=== PATIENT | male | born 1955 | race Two or more races ===

== ENCOUNTER 2016-09-15 21:03 | Inpatient (IN) | payer MEDICARE, OTHER ==
[~2016-09-15] VITALS: Ht 172.7 cm; Wt 68.0 kg
[2016-09-15] MEDS ORDERED: Lactulose 20gm/30ml UDC ORAL ONE (21:15)
[2016-09-15] MEDS ORDERED: Rifaximin 550mg tab ORAL ONE (21:15)
[2016-09-15] MEDS ORDERED: PROPRANOLOL HCL20 MG ORAL (21:17)
[2016-09-15] MEDS ORDERED: ZOFRAN8 MG ORAL (21:17)
[2016-09-15] MEDS ORDERED: PRO-STAT LIQUID30 ML ORAL (21:17)
[2016-09-15] MEDS ORDERED: LOPERAMIDE2 MG PO (21:17)
[2016-09-15] MEDS ORDERED: SPIRONOLACTONE1 EACH ORAL (21:17)
[2016-09-15] MEDS ORDERED: MULTIVITAMINS1 EAC2 ORAL (21:17)
[2016-09-15] MEDS ORDERED: FOLIC ACID1 MG ORAL (21:17)
[2016-09-15] MEDS ORDERED: QUETIAPINE FUMA25 MG ORAL (21:17)
[2016-09-15] MEDS ORDERED: ACETAMINOPHEN325 M1 ORAL (21:17)
[2016-09-15] MEDS ORDERED: XIFAXAN550 MG ORAL (21:17)
[2016-09-15] MEDS ORDERED: SENSIPAR30 MG ORAL (21:17)
[2016-09-15] MEDS ORDERED: LD2JL30 TOPIC (21:17)
[2016-09-15] MEDS ORDERED: FUROSEMIDE20 M1 ORAL (21:17)
[2016-09-15] MEDS ORDERED: PROTONIX40 MG ORAL (21:17)
[2016-09-15] MEDS ORDERED: TAMSULOSIN HCL0.4 MG ORAL (21:17)
[2016-09-15] MEDS ORDERED: PHOS-NAK PACKE1 EAC1 PO (21:17)
[2016-09-15] MEDS ORDERED: LACTULOSE20 GM/301 ORAL (21:17)
[2016-09-15] MEDS ORDERED: MIDODRINE HCL5 MG ORAL (21:17)
[2016-09-15] MEDS ORDERED: VITAMIN B-1100 MG ORAL (21:17)
[2016-09-15] MEDS ORDERED: MELATONIN5 M5 ORAL (21:17)
--- NOTE | 2016-09-15 21:17 | Emergency Room Report ---
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 He also has a history of renal failure and renal stone. He currently resides in a prison. He had a recent Sol placed but because he's been increasing confusion he cut it with a scissor. No other complaint. His said he's been off lactulose since July. There is no fever or chills. No nausea no vomiting. Allergies: Coded Allergies: IODINE (Verified Allergy, Mild, 09/15/16) Patient History Past Medical History: see triage record, old chart reviewed Past Surgical History: other Pertinent Family History: none Social History: Denies: smoking Immunizations: other Reviewed Nursing Documentation: PMH: Agreed, PSxH: Agreed Nursing Documentation-PMH Hx Hypertension: Yes - Hyperlipidemia Hx Gastrointestinal Problems: Yes - GERD, BPH History Of Psychiatric Problem: Yes - Psychosis unspecified, depression Review of Systems Eye: Denies: blurred vision, eye pain ENT: Denies: ear pain, nose congestion, throat swelling Respiratory: Denies: cough, shortness of breath Cardiovascular: Denies: chest pain, palpitations Gastrointestinal: Denies: abdominal pain, diarrhea, nausea, vomiting Musculoskeletal: Denies: back pain, joint pain Skin: Denies: rash Neurological: Denies: headache, numbness Endocrine: Denies: increased thirst, increased urine Hematologic/Lymphatic: Denies: easy bruising All Other Systems: negative except mentioned in HPI Physical Exam Vital Signs Date Time Temp Pulse Resp B/P Pulse Ox O2 Delivery O2 Flow Rate FiO2 09/15/16 21:00 98.8 70 16 130/85 99 Room Air vitals normal Sp02 EP Interpretation: reviewed, normal General Appearance: cachetic, other - Confused, Chronically Ill Head: normocephalic, atraumatic Eyes: bilateral eye EOMI, bilateral eye PERRL, bilateral eye scleral icterus ENT: hearing grossly normal, normal pharynx Neck: full range of motion, supple, no meningismus Respiratory: chest non-tender, lungs clear, normal breath sounds Cardiovascular #1: regular rate, rhythm, no murmur Gastrointestinal: normal bowel sounds, non tender, no mass, no organomegaly, no bruit, non-distended Genitourinary: other - The Sol itself is intact. The connector part was cut approximately. No bleeding. No trauma to the penis. Musculoskeletal: back normal, normal range of motion Neurologic: grossly normal Psychiatric: mood/affect normal Skin: warm/dry Medical Decision Making Diagnostic Impression: Primary Impression: Hepatic encephalopathy Additional Impressions: Complication of Sol catheter Qualified Codes: T83.9XXA - Unspecified complication of genitourinary prosthetic device, implant and graft, initial encounter Anemia, chronic disease End stage liver disease ER Course Patient presents with panic encephalopathy. No evidence of trauma from the Sol. No evidence of sepsis. Abdominal exam is soft. No evidence of tense ascites. Will admit for further workup. Laboratory Tests Test 09/15/16 21:23 White Blood Count 4.6 K/UL (4.8-10.8) L Red Blood Count 2.70 M/UL (4.70-6.10) L Hemoglobin 8.9 G/DL (14.2-18.0) L Hematocrit 25.3 % (42.0-52.0) L Mean Corpuscular Volume 93 FL (80-99) Mean Corpuscular Hemoglobin 33.1 PG (27.0-31.0) H Mean Corpuscular Hemoglobin Concent 35.4 G/DL (32.0-36.0) Red Cell Distribution Width 13.4 % (11.6-14.8) Platelet Count 44 K/UL (150-450) L Mean Platelet Volume 9.1 FL (6.5-10.1) Neutrophils (%) (Auto) % (45.0-75.0) Lymphocytes (%) (Auto) % (20.0-45.0) Monocytes (%) (Auto) % (1.0-10.0) Eosinophils (%) (Auto) % (0.0-3.0) Basophils (%) (Auto) % (0.0-2.0) Differential Total Cells Counted 100 Neutrophils % (Manual) 64 % (45-75) Lymphocytes % (Manual) 27 % (20-45) Monocytes % (Manual) 7 % (1-10) Eosinophils % (Manual) 0 % (0-3) Basophils % (Manual) 0 % (0-2) Band Neutrophils 2 % (0-8) Platelet Estimate Decreased L Platelet Morphology Normal Hypochromasia 1+ Anisocytosis 1+ Prothrombin Time 12.4 SEC (9.30-11.50) H Prothromb Time International Ratio 1.2 (0.9-1.1) H Activated Partial Thromboplast Time 24 SEC (23-33) Sodium Level 145 mEQ/L (135-145) Potassium Level 3.5 mEQ/L (3.4-4.9) Chloride Level 112 mEQ/L (98-107) H Carbon Dioxide Level 21 mEQ/L (20-30) Anion Gap 12 (5-15) Blood Urea Nitrogen 20 mg/dL (7-23) Creatinine 1.1 mg/dL (0.7-1.2) Estimat Glomerular Filtration Rate > 60 mL/min (>60) Glucose Level 105 mg/dL (74-106) Calcium Level 11.2 mg/dL (8.6-10.2) H Total Bilirubin 1.4 mg/dL (0.0-1.2) H Direct Bilirubin 0.4 mg/dL (0.1-0.3) H Aspartate Amino Transf (AST/SGOT) 58 U/L (5-40) H Alanine Aminotransferase (ALT/SGPT) 29 U/L (3-41) Alkaline Phosphatase 127 U/L (40-129) Ammonia 88 umol/L (16-60) H Total Protein 7.0 g/dL (6.6-8.7) Albumin 3.5 g/dL (3.5-5.2) Globulin 3.5 g/dL Albumin/Globulin Ratio 1.0 (1.0-2.7) Lipase 80 U/L (< 60) H Lab Results Impression labs are at baseline Rhythm Strip Diag. Results Rhythm Strip Time: 21:17 EP Interpretation: yes Rate: 88 Rhythm: NSR Last Vital Signs Date Time Temp Pulse Resp B/P Pulse Ox O2 Delivery O2 Flow Rate FiO2 09/15/16 21:00 98.8 70 16 130/85 99 Room Air Status: improved Disposition: ADMITTED INPATIENT Condition: Serious DARY PRADHAN M.D. Sep 15, 2016 21:17
[2016-09-15 21:54] LABS: MEAN CORPUSCULAR HEMOGLOBIN 33.1 PG (27.0-31.0); MEAN CORPUSCULAR HGB CONC 35.4 G/DL (32.0-36.0); MEAN CORPUSCULAR VOLUME 93 FL (80-99); MEAN PLATELET VOLUME 9.1 FL (6.5-10.1); PLATELET COUNT 44 K/UL (150-450); RED CELL DISTRIBUTION WIDTH 13.4 % (11.6-14.8); WHITE BLOOD COUNT 4.6 K/UL (4.8-10.8)
[2016-09-15 22:02] LABS: AMMONIA 88 umol/L (16-60); INR 1.2 (0.9-1.1); PROTHROMBIN TIME 12.4 SEC (9.30-11.50)
[2016-09-15 22:04] LABS: ALANINE AMINOTRANSFERASE 29 U/L (3-41); ANION GAP 12 (5-15); ASPARTATE AMINO TRANSFERASE 58 U/L (5-40); CALCIUM 11.2 mg/dL (8.6-10.2); CARBON DIOXIDE 21 mEQ/L (20-30); CHLORIDE 112 mEQ/L (98-107); CREATININE 1.1 mg/dL (0.7-1.2); GLOMERULAR FILTRATION RATE > 60 mL/min (>60); HEMOLYSIS 6; LIPASE 80 U/L (< 60); POTASSIUM 3.5 mEQ/L (3.4-4.9); SODIUM 145 mEQ/L (135-145)
[2016-09-15 22:29] LABS: BILIRUBIN,DIRECT 0.4 mg/dL (0.1-0.3)
[2016-09-15 22:41] LABS: ANISOCYTOSIS 1+; BAND NEUTROPHILS % (MANUAL) 2 % (0-8); BASOPHILS % (MANUAL) 0 % (0-2); EOSINOPHILS % (MANUAL) 0 % (0-3); HYPOCHROMASIA 1+; LYMPHOCYTES % (MANUAL) 27 % (20-45); NEUTROPHILS % (MANUAL) 64 % (45-75); PLATELET ESTIMATE DECREASED; PLATELET MORPHOLOGY NORMAL; TOTAL CELLS COUNTED 100
[2016-09-15 22:49] VITALS: BP 113/66
[2016-09-16] VITALS: BP 120/81
[2016-09-16 00:15] VITALS: BP 106/69
[2016-09-16] MEDS: Propranolol 10mg tab ORAL SCH ×3 (05:02→21:18)
[2016-09-16 08:00] VITALS: BP 117/76
[2016-09-16] MEDS: Thiamine 100mg tab ORAL SCH (08:22)
[2016-09-16] MEDS: Rifaximin 550mg tab ORAL SCH ×2 (08:23→21:15)
[2016-09-16] MEDS ORDERED: Lactulose 20gm/30ml UDC ORAL SCH (09:00)
[2016-09-16 11:28] LABS: APPEARANCE,URINE SLIGHTLY CLOUDY; KETONES,URINE NEGATIVE (NEGATIVE); LEUKOCYTE ESTERASE ,URINE 3+ (NEGATIVE); NITRITE,URINE NEGATIVE (NEGATIVE); PH,URINE 6.5 (4.5-8.0); PROTEIN,URINE 2+ (NEGATIVE); UROBILINOGEN,URINE NORMAL MG/DL (0.0-1.0)
[2016-09-16 11:38] LABS: BACTERIA,URINE FEW /HPF; CALCIUM OXALATE CRYSTALS,UR FEW /LPF; RBC,URINE 20-30 /HPF (0 - 0); SQUAMOUS EPITHELIAL CELL,UR FEW /LPF (NONE/OCC)
[2016-09-16 12:00] VITALS: BP 111/70
[2016-09-16] MEDS: Lactulose 20gm/30ml UDC ORAL SCH ×2 (12:16→18:15)
[2016-09-16] MEDS ORDERED: KCl 10% 20 mEq/15ml liquid ORAL ONE (12:30)
--- NOTE | 2016-09-16 13:02 | Progress Note ---
INTERNAL MEDICINE PROGRESS NOTE SUBJECTIVE: The patient remains withdrawn and lethargic. There was some blood in his Sol catheter but he is noted to be dressing at that time. Pack up. No nausea or vomiting. No seizures. The patient does not had a bowel movement, despite treatment with lactulose. OBJECTIVE: GENERAL: There is some asterisk noted. VITAL SIGNS: Blood pressure 117/76, pulse 83, respirations 20, and afebrile. Temporal wasting. HEENT: Mild icterus. Oropharynx clear. NECK: Supple. LUNGS: Clear. CARDIAC: Regular ABDOMEN: With no ascites. Soft. EXTREMITIES: Without edema. IMPRESSION: 1. Hepatic encephalopathy. 2. Alcoholic liver disease. 3. Cirrhosis. 4. History of multiple myeloma. 5. Cachexia. 6. Failure to thrive. 7. there is some asterixis noted note continuing. PLAN: Advance lactulose, continue hydrations until oral intake improves. Holding diuretic therapy. Follow up laboratory studies pending, and seizure precaution. Jeronimo Anthony M.D. DR: MARIO ALBERTO JOB#: [id number] CC:
[2016-09-16 16:00] VITALS: BP 117/99
--- NOTE | 2016-09-16 18:16 | History and Physical Report ---
DATE OF ADMISSION: 09/15/2016 REASON FOR ADMISSION: Hepatic encephalopathy. HISTORY OF PRESENT ILLNESS: This is a 61-year-old male with end-stage liver disease due to alcoholic cirrhosis. He has been off lactulose for over a month. He has an indwelling Sol catheter at times due to history of renal failure and nephrolithiasis; he had a cysto procedure last week. [facility]. The patient was brought to the emergency room for increasing confusion. He was noted to have an elevated ammonia level. PAST MEDICAL HISTORY: Gastroesophageal reflux disease, prostatic hypertrophy, depression with psychosis, hyperlipidemia, history of multiple myeloma in remission, hyperparathyroidism, and alcoholic liver disease as described above. ALLERGIES: Iodine. SOCIAL HISTORY: No smoking. Prior alcohol abuse. No recent alcohol intake known. REVIEW OF SYSTEMS: No loss of vision or hearing. No history of diabetes or thyroid impairment. No recent seizures. No melena or bright red blood per rectum. No history of hypertension or endocarditis. No history of rheumatic heart disease. He does have a history of multiple myeloma according to the records, but apparently has been active at this time. There is no history of asthma or blood clotting. There is no history of prostate cancer. He does have a history of kidney stones. He does have a history of renal failure. PHYSICAL EXAMINATION: VITAL SIGNS: Afebrile, blood pressure 130/85, pulse 70, and respirations 16. GENERAL: Temporal wasting. HEENT: Scleral icterus. Oropharynx clear. NECK: Supple. LUNGS: Clear. CARDIAC: Regular. Normal S1 and S2. No murmur. ABDOMEN: Soft. No ascites. EXTREMITIES: No edema. NEUROLOGIC: Nonfocal. There is asterixis. LABORATORY DATA: White count 4.6, hemoglobin 8.9, and platelet count is 92K. Sodium 145, potassium 3.5, bicarbonate 21, BUN 20, creatinine 1.1, and glucose 105. Lipase 80. Ammonia 88. IMPRESSION: 1. Hepatic encephalopathy. 2. Alcoholic liver disease. 3. Thrombocytopenia. 4. History of multiple myeloma. 5. Nephrolithiasis. 6. History of renal failure. PLAN: 1. Hold diuretics. 2. Cautiously hydrate. 3. Followup urine culture. 4. Lactulose. 5. Monitor clinical parameters and ammonia. 6. Seizure precautions. Jeronimo Anthony M.D. DR: ELVER JOB#: [id number] CC: LUCIANO
[2016-09-16 20:00] VITALS: BP 104/73
[2016-09-16] MEDS: Tamsulosin 0.4mg cap ORAL SCH (21:15)
[2016-09-16] MEDS ORDERED: 1/2 NS 1000ml IV ONE (22:59)
[2016-09-17] VITALS: BP 107/72
[2016-09-17 04:00] VITALS: BP 105/72
[2016-09-17] MEDS: Propranolol 10mg tab ORAL SCH ×3 (05:48→20:57)
[2016-09-17 08:00] VITALS: BP 101/67
[2016-09-17 08:08] LABS: AMMONIA 46 umol/L (16-60)
[2016-09-17 08:14] LABS: ALANINE AMINOTRANSFERASE 69 U/L (3-41); ANION GAP 9 (5-15); ASPARTATE AMINO TRANSFERASE 99 U/L (5-40); BILIRUBIN,DIRECT 0.3 mg/dL (0.1-0.3); CALCIUM 10.2 mg/dL (8.6-10.2); CARBON DIOXIDE 20 mEQ/L (20-30); CHLORIDE 111 mEQ/L (98-107); CREATININE 0.8 mg/dL (0.7-1.2); GLOMERULAR FILTRATION RATE > 60 mL/min (>60); HEMOLYSIS 4; POTASSIUM 3.8 mEQ/L (3.4-4.9); SODIUM 140 mEQ/L (135-145); TOTAL PROTEIN 5.6 g/dL (6.6-8.7)
[2016-09-17 08:39] LABS: MEAN CORPUSCULAR HGB CONC 34.7 G/DL (32.0-36.0); MEAN CORPUSCULAR VOLUME 95 FL (80-99); MEAN PLATELET VOLUME 8.4 FL (6.5-10.1); PLATELET COUNT 35 K/UL (150-450); RED BLOOD COUNT 2.68 M/UL (4.70-6.10); WHITE BLOOD COUNT 4.7 K/UL (4.8-10.8)
[2016-09-17] MEDS: Thiamine 100mg tab ORAL SCH (09:00)
[2016-09-17] MEDS: Lactulose 20gm/30ml UDC ORAL SCH ×2 (09:00→17:05)
[2016-09-17] MEDS: Rifaximin 550mg tab ORAL SCH ×2 (09:00→20:51)
[2016-09-17 09:24] LABS: BAND NEUTROPHILS % (MANUAL) 0 % (0-8); BASOPHILS % (MANUAL) 0 % (0-2); EOSINOPHILS % (MANUAL) 2 % (0-3); LYMPHOCYTES % (MANUAL) 10 % (20-45); NEUTROPHILS % (MANUAL) 85 % (45-75); PLATELET ESTIMATE DECREASED; PLATELET MORPHOLOGY NORMAL; TOTAL CELLS COUNTED 100
[2016-09-17 11:44] VITALS: BP 105/68
[2016-09-17 15:56] VITALS: BP 115/71
[2016-09-17 20:00] VITALS: BP 127/77
--- NOTE | 2016-09-17 20:31 | Progress Note ---
DATE: 09/17/2016 CARDIOLOGY AND INTERNAL MEDICINE PROGRESS NOTE SUBJECTIVE: The patient is more alert. Sol catheter was replaced due to postoperative phase. Minimal hematuria was noted. Episodically, urine is clear. OBJECTIVE: GENERAL: The patient is more alert. Intake is better. VITAL SIGNS: Blood pressure is 101/67, pulse 78, and respirations 19. Temporal wasting. HEENT: Positive icterus. ABDOMEN: Soft. LUNGS: Clear. CARDIAC: Regular. Normal S1 and S2 with no murmur. EXTREMITIES: Without edema. LABORATORY DATA: Ammonia level is now 44. IMPRESSION: 1. Hepatic encephalopathy, improved. 2. Elevated ammonia, corrected. 3. Status post urethrostomy, now with catheter in place. 4. Possible urinary tract infection. Awaiting culture results. 5. Alcoholic liver disease with cirrhosis. PLAN: Adjust lactulose dosing. Await urine studies. Continue Sol catheter. Discontinue IV fluids. Continue to hold diuretic therapy at this time. Jeronimo Anthony M.D. DR: ELVER JOB#: [id number] CC:
[2016-09-17] MEDS: Tamsulosin 0.4mg cap ORAL SCH (20:56)
[2016-09-18] VITALS: BP 124/84
[2016-09-18 04:00] VITALS: BP 101/57
[2016-09-18] MEDS: Propranolol 10mg tab ORAL SCH ×3 (05:33→21:05)
[2016-09-18 08:15] VITALS: BP 104/67
[2016-09-18] MEDS: Rifaximin 550mg tab ORAL SCH ×2 (08:47→21:05)
[2016-09-18] MEDS: Lactulose 20gm/30ml UDC ORAL SCH ×2 (08:47→18:40)
[2016-09-18] MEDS: Thiamine 100mg tab ORAL SCH (08:47)
[2016-09-18 12:01] VITALS: BP 104/70
[2016-09-18 16:06] VITALS: BP 117/84
[2016-09-18 20:00] VITALS: BP 113/66
[2016-09-18] MEDS: Tamsulosin 0.4mg cap ORAL SCH (21:05)
[2016-09-19] VITALS: BP 110/59
[2016-09-19 04:00] VITALS: BP 114/73
--- NOTE | 2016-09-19 05:01 | Progress Note ---
DATE: 09/18/2016 INTERNAL MEDICINE PROGRESS NOTE SUBJECTIVE: The patient is alert and interactive. Near baseline level of mentation according to his . The patient still has a Sol catheter in place. Urine is not . OBJECTIVE: VITAL SIGNS: Blood pressure 113/66, pulse 77, respirations 20, and afebrile. LUNGS: Clear. CARDIAC: Regular. Normal S1 and S2. ABDOMEN: Soft. EXTREMITIES: No edema. IMPRESSION: 1. Alcoholic cirrhosis. 2. Status post urethroscopy with indwelling catheter. 3. Possible urinary tract infection. 4. Hepatic encephalopathy. 5. Hypovolemia and dehydration. PLAN: 1. Recheck laboratory studies including ammonia. 2. Adjust lactulose dosing. 3. Consider on resumption of maintenance diuretic therapy. 4. Discharge planning once urine studies are available. Jeronimo Anthony M.D. DR: MAN JOB#: [id number] CC:
[2016-09-19] MEDS: Propranolol 10mg tab ORAL SCH ×2 (06:00→14:00)
[2016-09-19 06:31] LABS: MEAN CORPUSCULAR HEMOGLOBIN 33.6 PG (27.0-31.0); MEAN CORPUSCULAR HGB CONC 35.5 G/DL (32.0-36.0); MEAN CORPUSCULAR VOLUME 95 FL (80-99); MEAN PLATELET VOLUME 7.7 FL (6.5-10.1); PLATELET COUNT 34 K/UL (150-450); RED BLOOD COUNT 2.62 M/UL (4.70-6.10); WHITE BLOOD COUNT 4.1 K/UL (4.8-10.8)
[2016-09-19 06:53] LABS: AMMONIA 78 umol/L (16-60)
[2016-09-19 07:01] LABS: ALANINE AMINOTRANSFERASE 51 U/L (3-41); ALBUMIN/GLOBULIN RATIO 0.8 (1.0-2.7); ANION GAP 7 (5-15); ASPARTATE AMINO TRANSFERASE 61 U/L (5-40); CALCIUM 10.7 mg/dL (8.6-10.2); CARBON DIOXIDE 20 mEQ/L (20-30); CHLORIDE 113 mEQ/L (98-107); CREATININE 0.8 mg/dL (0.7-1.2); GLOMERULAR FILTRATION RATE > 60 mL/min (>60); HEMOLYSIS 4; POTASSIUM 3.5 mEQ/L (3.4-4.9); SODIUM 140 mEQ/L (135-145)
[2016-09-19 07:45] VITALS: BP 108/74
[2016-09-19 08:53] LABS: ANISOCYTOSIS 1+; BAND NEUTROPHILS % (MANUAL) 0 % (0-8); BASOPHILS % (MANUAL) 0 % (0-2); EOSINOPHILS % (MANUAL) 2 % (0-3); HYPOCHROMASIA 1+; LYMPHOCYTES % (MANUAL) 17 % (20-45); NEUTROPHILS % (MANUAL) 77 % (45-75); PLATELET ESTIMATE DECREASED; PLATELET MORPHOLOGY NORMAL; TOTAL CELLS COUNTED 100
[2016-09-19] MEDS: Rifaximin 550mg tab ORAL SCH (08:59)
[2016-09-19] MEDS: Lactulose 20gm/30ml UDC ORAL SCH (08:59)
[2016-09-19] MEDS: Thiamine 100mg tab ORAL SCH (08:59)
[2016-09-19 11:34] VITALS: BP 105/60
[2016-09-19] MEDS ORDERED: Lactulose 20gm/30ml UDC ORAL SCH (14:00)
[2016-09-19] MEDS ORDERED: LACTULOSE20 GM/301 ORAL (14:08)
[2016-09-19] MEDS ORDERED: LACTULOSE10 GM/155 PO ×2 (14:14→14:18)
[2016-09-19] MEDS ORDERED: PROPRANOLOL HCL10 MG ORAL (14:17)
[2016-09-19 16:54] VITALS: BP 116/77
--- NOTE | 2016-09-19 19:45 | Progress Note ---
DISCHARGE/PROGRESS NOTE DATE: 09/19/2016 SUBJECTIVE: The patient is awake, alert, and interactive. He still has a Sol catheter and draining clear but orangish urine. OBJECTIVE: VITAL SIGNS: Blood pressure 116/77, pulse 79, respirations 15, and temperature max 99.9. GENERAL: No asterixis. NECK: Supple. LUNGS: Clear. HEART: Regular rhythm and rate. Normal S1, S2. ABDOMEN: Soft. No ascites. EXTREMITIES: No edema. LABORATORY DATA: Urine culture is negative. Labs reviewed. IMPRESSION: 1. Hepatic encephalopathy, clinically resolved. 2. End-stage liver disease with alcoholic cirrhosis. No clinical signs of ascites at this time. 3. Status post urethroscopy with indwelling Sol catheter. No signs of acute urinary infection. PLAN: 1. Continue indwelling Sol additional 72 hours until your pending urologic followup. 2. No resumption of furosemide and Aldactone at this time. 3. Maintain adequate oral hydration. 4. Maintain lactulose at current dosing. 5. Monitor clinical parameters. 6. Trend ammonia levels. 7. Stable to complete recovery at half-way facility. Jeronimo Anthony M.D. : ELLA JOB#: [id number] CC:
--- NOTE | 2016-09-20 09:43 | Discharge Summary ---
Discharge Summary Hospital Course Date of Admission Sep 15, 2016 at 23:30 Date of Discharge Sep 19, 2016 at 17:41 Admitting Diagnosis hepatic encephalopathy VENITA Duque is a 61 year old male who was admitted on Sep 15, 2016 at 23: 30 for Hepatic Encephalopathy Hospital Course dc summary #[id number] Discharge Medications Continued Medications: Folic Acid* (Folic Acid*) 1 Mg Tablet 1 MG ORAL DAILY, TAB Lactulose (Lactulose) 10 Gm/15 Ml Solution 45 GM PO EVERY 8 HOURS Ondansetron Hcl* (Zofran*) 8 Mg Tablet 4 MG ORAL Q6H PRN for Nausea & Vomiting, #4 TAB 0 Refills Pantoprazole* (Protonix*) 40 Mg Tablet.dr 40 MG ORAL DAILY, TAB Propranolol Hcl* (Inderal*) 10 Mg Tablet 10 MG ORAL THREE TIMES A DAY, #90 TAB 0 Refills Rifaximin* (Xifaxan*) 550 Mg Tablet 550 MG ORAL TWICE A DAY for 30 Days, MG 0 Refills Tamsulosin Hcl (Tamsulosin Hcl*) 0.4 Mg Cap.er.24h 0.4 MG ORAL BEDTIME, CAP Thiamine Hcl* (Vitamin B-1*) 100 Mg Tablet 100 MG ORAL DAILY, #30 TAB 0 Refills Discharge Condition Upon Discharge: stable Discharge Disposition Patient was discharged to SNF/Subacute Facility(03) Discharge Diagnoses: Discharge Instructions Discharge Instructions Special Instructions I have been assigned to complete a D/C Summary on this account. I was not involved in the patient management Caterina Connors NP (Vanchtein) Sep 20, 2016 09:43
--- NOTE | 2016-09-20 17:31 | Discharge Summary 2 SIG ---
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 Workup in the emergency room revealed elevated ammonia. Sol catheter, which was placed after urethrostomy was cut by [facility]. The patient was off lactulose since July. No fever. No chills. No nausea. No vomiting. Ammonia level 88. Hemoglobin 8.9, hematocrit 25.3, and platelets were 44,000. BUN 20 and creatinine 1.1. Total bilirubin 1.4. Direct bilirubin 0.4. AST 58 and ALT 29. Lipase 80. The patient admitted for further management. ADMITTING DIAGNOSES: 1. Hepatic encephalopathy. 2. Anemia of chronic disease. 3. Alcoholic liver disease with cirrhosis. 4. Thrombocytopenia. 5. History of renal failure. 6. Nephrolithiasis. 7. Possible urinary tract infection HOSPITAL STAY: The patient admitted. The patient started on cautious hydration. Diuretics were on hold. Renal parameters and electrolytes were closely monitored. Initially possible urinary tract infection, the patient started on empiric antibiotics, however urine culture was negative. Antibiotic discontinued. The patient started on the lactulose and rifaximin. Ammonia level was closely monitored. Initially ammonia level decreased to 46 and then increased again to 78. Lactulose dose was adjusted, to be continued at care home facility. Seizure precaution maintained. Hemoglobin and hematocrit closely monitor. No need for transfusion. Thiamine and folic acid were continued. The patient had IV fluids for one week, then IV fluids discontinued, however, the patient show clinical evidence of dehydration and hypovolemia and per off premise service representative not to resume diuretics at that time and he recommended to maintain adequate oral hydration. Trend ammonia at care home facility. Maintain lactulose at current dose and continue indwelling Sol for additional 24 hours until Urology follow up at the care home facility. The patient was stable for discharge. DISCHARGE DIAGNOSES: 1. Hepatic encephalopathy, improved. 2. Alcoholic liver disease with cirrhosis. 3. End-stage liver disease. No clinical evidence of ascites. 4. Status post urethroscopy with indwelling Sol catheter. No signs of acute urinary tract infection. 5. Anemia of chronic disease. 6. Thrombocytopenia. 7. Dehydration. DISCHARGE MEDICATIONS: See medication reconciliation list. DISCHARGE INSTRUCTIONS: The patient discharged to care home facility. FOLLOWUP: Follow up with medical doctor at the facility and follow up with Urology as outpatient basis. Jeronimo Anthony M.D. I have been assigned to dictate discharge summary on this account and I was not involved in the patient's management. Caterina Rosenbaumcentral islip psychiatric centerDariana NAreliPAreli DR: BRANDEE JOB#: [id number] CC:
== END 2016-09-19 17:41 | DRG 442 ==
LOC: EDBD 21:03 → EMR 21:28 → EDBEDREQ 22:59 → 4E 23:30
DX: K72.90 Hepatic failure, unspecified without coma (principal); C90.01 Multiple myeloma in remission; D69.6 Thrombocytopenia, unspecified; R62.7 Adult failure to thrive; N20.0 Calculus of kidney; E86.0 Dehydration; K70.30 Alcoholic cirrhosis of liver without ascites; K21.9 Gastro-esophageal reflux disease without esophagitis; N40.0 Benign prostatic hyperplasia without lower urinary tract symptoms; E78.5 Hyperlipidemia, unspecified; E21.3 Hyperparathyroidism, unspecified; D63.8 Anemia in other chronic diseases classified elsewhere; Z91.041 Radiographic dye allergy status
CPT/HCPCS: 36415; 80048; 80053; 80076; 81001; 82105; 82140; 82248; 83690; 84443; 85007; 85025; 85610; 85730; 87081; 87086

== ENCOUNTER 2016-11-22 08:57 | Inpatient (IN) | payer MEDICARE, OTHER ==
[~2016-11-22] VITALS: Ht 165.1 cm; Wt 72.6 kg
[~2016-11-22 08:57] MED LIST: ACETAMINOPHEN325 M1 ORAL; FOLIC ACID1 MG ORAL; FUROSEMIDE20 M1 ORAL; LACTULOSE10 GM/155 PO; LACTULOSE20 GM/301 ORAL; LD2JL30 TOPIC; LOPERAMIDE2 MG PO; MELATONIN5 M5 ORAL; MIDODRINE HCL5 MG ORAL; MULTIVITAMINS1 EAC2 ORAL; PHOS-NAK PACKE1 EAC1 PO; PRO-STAT LIQUID30 ML ORAL; PROPRANOLOL HCL10 MG ORAL; PROPRANOLOL HCL20 MG ORAL; PROTONIX40 MG ORAL; QUETIAPINE FUMA25 MG ORAL; SENSIPAR30 MG ORAL; SPIRONOLACTONE1 EACH ORAL; TAMSULOSIN HCL0.4 MG ORAL; VITAMIN B-1100 MG ORAL; XIFAXAN550 MG ORAL; ZOFRAN8 MG ORAL
[2016-11-22 09:05] VITALS: BP 110/60
[2016-11-22] MEDS ORDERED: ZOFRAN8 MG ORAL (09:05)
[2016-11-22] MEDS ORDERED: NORCO 5-325 TA1 EAC1 ORAL (09:05)
--- NOTE | 2016-11-22 10:12 | Diagnostic Imaging Report ---
Indication: SOB Technique: One view of the chest Comparison: none Findings: Lungs and pleural spaces are clear. Heart size is upper limits of normal. Upper mediastinum is unremarkable Impression: No acute process
[2016-11-22 10:17] LABS: MEAN CORPUSCULAR HEMOGLOBIN 30.3 PG (27.0-31.0); MEAN CORPUSCULAR HGB CONC 33.1 G/DL (32.0-36.0); MEAN CORPUSCULAR VOLUME 92 FL (80-99); MEAN PLATELET VOLUME 9.1 FL (6.5-10.1); PLATELET COUNT 51 K/UL (150-450); RED BLOOD COUNT 2.95 M/UL (4.70-6.10); RED CELL DISTRIBUTION WIDTH 14.2 % (11.6-14.8); WHITE BLOOD COUNT 5.3 K/UL (4.8-10.8)
[2016-11-22 10:24] LABS: INR 1.2 (0.9-1.1); PROTHROMBIN TIME 12.5 SEC (9.30-11.50)
[2016-11-22 10:25] LABS: ALANINE AMINOTRANSFERASE 21 U/L (3-41); ALBUMIN/GLOBULIN RATIO 0.8 (1.0-2.7); ANION GAP 1 (5-15); ASPARTATE AMINO TRANSFERASE 31 U/L (5-40); CALCIUM 11.9 mg/dL (8.6-10.2); CARBON DIOXIDE 22 mEQ/L (20-30); CHLORIDE 114 mEQ/L (98-107); CREATININE 0.8 mg/dL (0.7-1.2); GLOMERULAR FILTRATION RATE > 60 mL/min (>60); HEMOLYSIS 3; POTASSIUM 3.6 mEQ/L (3.4-4.9); SODIUM 137 mEQ/L (135-145); TOTAL PROTEIN 6.4 g/dL (6.6-8.7); TROPONIN I < 0.30 ng/mL (<=0.30)
[2016-11-22 10:35] LABS: CKMB < 1.5 ng/mL (< 6.7)
[2016-11-22 10:45] LABS: BILIRUBIN,DIRECT 0.3 mg/dL (0.1-0.3)
[2016-11-22] MEDS ORDERED: Lactulose 20gm/30ml UDC ORAL ONE (10:45)
[2016-11-22 10:56] LABS: BAND NEUTROPHILS % (MANUAL) 1 % (0-8); EOSINOPHILS % (MANUAL) 7 % (0-3); LYMPHOCYTES % (MANUAL) 10 % (20-45); NEUTROPHILS % (MANUAL) 78 % (45-75); TOTAL CELLS COUNTED 100
[2016-11-22 10:57] LABS: BASOPHILS % (MANUAL) 0 % (0-2); PLATELET ESTIMATE DECREASED; PLATELET MORPHOLOGY NORMAL
--- NOTE | 2016-11-22 10:59 | Diagnostic Imaging Report ---
Indication: Altered metal status. History of nontraumatic subdural hemorrhage. History of encephalopathy Technique: sagittal T1 fast spin echo, axial T1 FLAIR, axial T2 FLAIR, axial T2 FS PROPELLER, axial T2* GRE, axial diffusion weighted images. ADC and exponential ADC maps generated Comparison: None Findings: No abnormal areas of restricted diffusion to suggest acute infarction. No acute hemorrhage or edema. No mass effect nor midline shift. There is mild age-related enlargement of ventricles and extra-axial CSF spaces. Confluent and discrete bilateral deep white matter T2 hyperintensities are demonstrated. Vascular flow voids are preserved.. There is evidence of prior cataract surgery bilaterally. The sinuses are clear. There is minimal mastoid disease on the left. Impression: Negative for acute intracranial bleed, mass effect, or infarct Mild age-related volume loss Bilateral confluent and focal deep white matter T2 hyperintensities. Most likely on the basis of chronic ischemic change. Demyelinating disease also a possibility Minimal left mastoid disease.
[2016-11-22 11:10] VITALS: BP 115/67
[2016-11-22] MEDS ORDERED: Lactulose 200 GM in NS Irrig 1000ml 700 ML RECTAL ONE (11:15)
--- NOTE | 2016-11-22 14:59 | Emergency Room Report ---
History of Present Illness General Chief Complaint: Altered Level of Consciousness Source: Patient, Medical Record Present Illness HPI Patient 61-year-old male who presented after increased altered mental status. Patient was sent from care home. Patient was noted to have prior history of hepatic encephalopathy as well as multiple myeloma. The patient previously been transfused platelets. He was noted to be recently evaluated outside facility. Patient was sent in for further evaluation of increased altered mental status. Patient noted have recently fallen and into the left side of his face. Allergies: Coded Allergies: IODINE (Verified Allergy, Mild, 09/15/16) Patient History Past Medical History: see triage record Reviewed Nursing Documentation: PMH: Agreed, PSxH: Agreed Nursing Documentation-PMH Past Medical History Deferred: Pt Cognitively Impaired Hx Hypertension: Yes Hx Cancer: No Hx Gastrointestinal Problems: Yes Hx Dialysis: No - Acute Kidney Failure, Liver Cirrhosis Hx Neurological Problems: Yes - AMS Hx Cerebrovascular Accident: No - Encephalopathy Hx Dysphasia: Yes Hx Weakness: Yes Review of Systems All Other Systems: limited - by mental status Physical Exam Vital Signs Date Time Temp Pulse Resp B/P (MAP) Pulse Ox O2 Delivery O2 Flow Rate FiO2 11/22/16 08:50 66 18 113/64 98 Room Air General Appearance: alert, Chronically Ill Eyes: bilateral eye other - left pupils nonreactive ENT: hearing grossly normal Respiratory: lungs clear, normal breath sounds Cardiovascular #1: normal peripheral pulses, regular rate, rhythm Gastrointestinal: normal bowel sounds, non tender, soft Musculoskeletal: normal inspection, back normal, digits/nails normal Neurologic: normal inspection, alert, oriented x3, responsive, assistant manager of operations III-XII nml as tested Medical Decision Making Diagnostic Impression: Primary Impression: Altered level of consciousness Additional Impressions: Hepatic encephalopathy Thrombocytopenia ER Course Patient presented for altered level of consciousness. Differential diagnosis included but was not limited to ischemic stroke, subarachnoid hemorrhage, hypoglycemia, spinal cord injury, neurodegenerative disorder, urinary tract infection, hypoxemia.Because of complexity of patient's case laboratory testing and imaging studies were ordered.Patient was given IV fluids as well as lactulose. MRI read by radiology showed chronic ischemic white matter changes as well as nonspecific changes. Dr. Darrius Garcia was contacted for inpatient management Labs Test 11/22/16 09:50 11/22/16 10:45 White Blood Count 5.3 K/UL (4.8-10.8) Red Blood Count 2.95 M/UL (4.70-6.10) Hemoglobin 8.9 G/DL (14.2-18.0) Hematocrit 27.0 % (42.0-52.0) Mean Corpuscular Volume 92 FL (80-99) Mean Corpuscular Hemoglobin 30.3 PG (27.0-31.0) Mean Corpuscular Hemoglobin Concent 33.1 G/DL (32.0-36.0) Red Cell Distribution Width 14.2 % (11.6-14.8) Platelet Count 51 K/UL (150-450) Mean Platelet Volume 9.1 FL (6.5-10.1) Neutrophils (%) (Auto) % (45.0-75.0) Lymphocytes (%) (Auto) % (20.0-45.0) Monocytes (%) (Auto) % (1.0-10.0) Eosinophils (%) (Auto) % (0.0-3.0) Basophils (%) (Auto) % (0.0-2.0) Differential Total Cells Counted 100 Neutrophils % (Manual) 78 % (45-75) Lymphocytes % (Manual) 10 % (20-45) Monocytes % (Manual) 4 % (1-10) Eosinophils % (Manual) 7 % (0-3) Basophils % (Manual) 0 % (0-2) Band Neutrophils 1 % (0-8) Platelet Estimate Decreased Platelet Morphology Normal Red Blood Cell Morphology Normal Prothrombin Time 12.5 SEC (9.30-11.50) Prothromb Time International Ratio 1.2 (0.9-1.1) Activated Partial Thromboplast Time 30 SEC (23-33) Sodium Level 137 mEQ/L (135-145) Potassium Level 3.6 mEQ/L (3.4-4.9) Chloride Level 114 mEQ/L (98-107) Carbon Dioxide Level 22 mEQ/L (20-30) Anion Gap 1 (5-15) Blood Urea Nitrogen 14 mg/dL (7-23) Creatinine 0.8 mg/dL (0.7-1.2) Estimat Glomerular Filtration Rate > 60 mL/min (>60) Glucose Level 96 mg/dL (74-106) Lactic Acid Level 1.50 mmol/L (0.66-2.22) Calcium Level 11.9 mg/dL (8.6-10.2) Total Bilirubin 1.4 mg/dL (0.0-1.2) Direct Bilirubin 0.3 mg/dL (0.1-0.3) Aspartate Amino Transf (AST/SGOT) 31 U/L (5-40) Alanine Aminotransferase (ALT/SGPT) 21 U/L (3-41) Alkaline Phosphatase 106 U/L (40-129) Total Creatine Kinase 47 U/L (38-174) Creatine Kinase MB < 1.5 ng/mL (< 6.7) Creatine Kinase MB Relative Index Troponin I < 0.30 ng/mL (<=0.30) Total Protein 6.4 g/dL (6.6-8.7) Albumin 2.9 g/dL (3.5-5.2) Globulin 3.5 g/dL Albumin/Globulin Ratio 0.8 (1.0-2.7) Ammonia 135 umol/L (16-60) EKG Diagnostic Results Rate: normal - 773 Rhythm: NSR ST Segments: no acute changes Last Vital Signs Date Time Temp Pulse Resp B/P (MAP) Pulse Ox O2 Delivery O2 Flow Rate FiO2 11/22/16 08:50 66 18 113/64 98 Room Air Status: unchanged Disposition: ADMITTED INPATIENT Condition: Serious Referrals: NON PHYSICIAN (PCP) Ernie Grossman Nov 22, 2016 14:58
[2016-11-22 16:30] VITALS: BP 109/62
[2016-11-22] MEDS ORDERED: MULTIVITAMINS1 EAC8 ORAL (19:10)
[2016-11-22 19:20] VITALS: BP 120/76
[2016-11-22 20:28] VITALS: BP 112/72
[2016-11-22] MEDS: Lactulose 20gm/30ml UDC ORAL SCH (21:36)
[2016-11-22] MEDS: Tamsulosin 0.4mg cap ORAL SCH (21:36)
[2016-11-22] MEDS: Thiamine 100mg tab ORAL SCH (21:36)
[2016-11-22] MEDS ORDERED: Propranolol 10mg tab ORAL SCH (22:00)
[2016-11-23 00:15] VITALS: BP 118/75
--- NOTE | 2016-11-23 03:30 | Consultation ---
DATE OF CONSULTATION: 11/22/2016 CARDIOLOGY CONSULTATION CONSULTING PHYSICIAN: Jeronimo Anthony M.D. REQUESTING PHYSICIAN: Sp Vicente M.D. REASON FOR CONSULTATION: Bradycardia. HISTORY OF PRESENT ILLNESS: This 61-year-old male with end-stage liver disease and multiple myeloma was referred to the hospital because of altered mentation. He was noted to have an elevated ammonia level to 135. He apparently fell with left-sided facial trauma earlier and had a CT scan in the emergency room that revealed no signs of acute bleeding or acute disease. He is noted to have a slow heart rate at times in the 40s. I have been asked to assist with cardiovascular care. PAST MEDICAL HISTORY: Includes end-stage liver disease, prostatic hypertrophy, depression with psychosis, gastroesophageal reflux disease, hyperparathyroidism, hyperlipidemia, multiple myeloma, thrombocytopenia, history of alcoholism, nephrolithiasis, and history of renal failure. MEDICATIONS: Prior to admission, reviewed and reconciled. ALLERGIES: Include iodine. SOCIAL HISTORY: Prior history of alcohol abuse. Nonsmoker. No substance abuse. REVIEW OF SYSTEMS: The patient was hospitalized here in August of 2016 with hepatic encephalopathy. At that time, he was treated with lactulose. Diuretic therapy was adjusted and he was discharged in stable condition. He apparently recently has had a flare of his multiple myeloma and has been receiving transfusions of platelets at times and oncology care. PHYSICAL EXAMINATION: VITAL SIGNS: Blood pressure 113/64, pulse 66, and respirations 18. GENERAL: He appears older than his stated age. HEENT: Both pupils are poorly reactive. There is no scleral icterus. Oropharynx clear. NECK: Supple. LUNGS: Clear. CARDIAC: Regular. Normal S1 and S2. ABDOMEN: Soft with no hepatomegaly. NEUROLOGIC: Reveals oriented x3, but with slow response time. No asterixis. LABORATORY DATA: White count 5.3, platelet count 51,000, and hemoglobin 8.9. Ammonia 135. INR 1.2. Potassium 3.6, BUN 14, and creatinine 0.8. Lactic acid 1.5, which is normal. Total bilirubin 1.4. AST and ALT are 31 and 21 respectively. IMPRESSION: 1. Metabolic encephalopathy. 2. Alcoholic liver disease. 3. End-stage liver disease. 4. Hepatic encephalopathy. 5. Mild hypovolemia. 6. Dehydration. 7. Sinus bradycardia secondary to beta-blockers. 8. Thrombocytopenia. 9. Multiple myeloma. 10. Mild coagulopathy. PLAN: 1. Cardiac monitoring. 2. Hold propranolol. 3. Hold diuretics. 4. Cautiously hydrate. 5. No anticoagulation. 6. No acetaminophen. 7. Monitor CBCs. 8. Vitamin supplementation. Jeronimo Anthony M.D. DR: MARIO ALBERTO JOB#: [id number] CC:
[2016-11-23 03:50] VITALS: BP 117/91
[2016-11-23 08:00] VITALS: BP 154/85
[2016-11-23 08:47] LABS: MEAN CORPUSCULAR HEMOGLOBIN 31.3 PG (27.0-31.0); MEAN CORPUSCULAR HGB CONC 33.5 G/DL (32.0-36.0); MEAN CORPUSCULAR VOLUME 94 FL (80-99); MEAN PLATELET VOLUME 11.3 FL (6.5-10.1); PLATELET COUNT 36 K/UL (150-450); RED BLOOD COUNT 2.54 M/UL (4.70-6.10); RED CELL DISTRIBUTION WIDTH 14.5 % (11.6-14.8); WHITE BLOOD COUNT 3.6 K/UL (4.8-10.8)
[2016-11-23] MEDS ORDERED: Propranolol 10mg tab ORAL SCH (09:00)
[2016-11-23] MEDS: Lactulose 20gm/30ml UDC ORAL SCH ×3 (09:04→16:50)
[2016-11-23] MEDS: Thiamine 100mg tab ORAL SCH (09:05)
[2016-11-23 09:11] LABS: ALANINE AMINOTRANSFERASE 21 U/L (3-41); ALBUMIN/GLOBULIN RATIO 0.8 (1.0-2.7); ANION GAP 9 (5-15); ASPARTATE AMINO TRANSFERASE 32 U/L (5-40); CARBON DIOXIDE 22 mEQ/L (20-30); CHLORIDE 110 mEQ/L (98-107); CREATININE 0.9 mg/dL (0.7-1.2); GLOMERULAR FILTRATION RATE > 60 mL/min (>60); HEMOLYSIS 5; POTASSIUM 3.2 mEQ/L (3.4-4.9); SODIUM 141 mEQ/L (135-145); TOTAL PROTEIN 6.5 g/dL (6.6-8.7)
[2016-11-23 09:13] LABS: AMMONIA 55 umol/L (16-60)
[2016-11-23 09:25] LABS: BILIRUBIN,DIRECT 0.4 mg/dL (0.1-0.3)
[2016-11-23 10:30] LABS: BAND NEUTROPHILS % (MANUAL) 0 % (0-8); BASOPHILS % (MANUAL) 1 % (0-2); EOSINOPHILS % (MANUAL) 3 % (0-3); LYMPHOCYTES % (MANUAL) 20 % (20-45); NEUTROPHILS % (MANUAL) 71 % (45-75); PLATELET ESTIMATE DECREASED; PLATELET MORPHOLOGY NORMAL; TOTAL CELLS COUNTED 100
[2016-11-23] MEDS ORDERED: KCl 10% 20 mEq/15ml liquid NG ONE (11:15)
[2016-11-23 12:00] VITALS: BP 118/72
[2016-11-23 16:00] VITALS: BP_SYST 118; BP_SYST 122; BP_DIAS 72; BP_DIAS 80
--- NOTE | 2016-11-23 16:15 | History and Physical Report ---
DATE OF ADMISSION: 11/22/2016 CHIEF COMPLAINT: Fall, bradycardia, and hepatic encephalopathy. HISTORY OF PRESENT ILLNESS: The patient is a 61-year-old male. He has a history of end-stage liver disease and cirrhosis, chronic kidney disease, hyperparathyroidism, hypertension, myeloma, and congestive heart failure. He was transferred from a [facility] facility with complaints of a fall. The patient sustained ecchymosis to the left eye. The patient is confused, unable to provide any history. It is unclear whether or not the patient fell, had a syncopal episode. He was noted to be bradycardic in the emergency room. In addition, he had an elevated ammonia level at 135. The patient had a CAT scan of the head that showed no evidence of any bleed. He is now admitted for further evaluation and care. PAST MEDICAL HISTORY: As above. He has a history of GERD, kidney stones, and history of ETOH abuse. CURRENT MEDICATIONS: Reconciled and reviewed. ALLERGIES: Include iodine. SOCIAL HISTORY: There is no known history of tobacco or drugs. The patient has history of alcohol use. FAMILY HISTORY: Unknown. REVIEW OF SYSTEMS: Unobtainable as the patient is confused. PHYSICAL EXAMINATION: VITAL SIGNS: Temperature 98 degrees, pulse 52, blood pressure 112/72, and respirations 20. GENERAL: The patient is a well-developed male, chronically ill, and thin. HEENT: There is ecchymosis of the left eye. NECK: Supple. HEART: Regular rate and rhythm. LUNGS: Clear. ABDOMEN: Soft, nontender, and nondistended. EXTREMITIES: Without clubbing, cyanosis, or edema. LABORATORY DATA: Showed a white count of 5, hemoglobin 9, hematocrit 27, and platelets of 51,000. Sodium 137, potassium 3.6, and calcium 11.9. Bilirubin of 1.4. ASSESSMENT: This is an elderly male with multiple medical problems, admitted with either syncopal episode or mechanical fall. He is noted to be bradycardic. He has hepatic encephalopathy. 1. Hepatic encephalopathy. 2. Cirrhosis. 3. Bradycardia. 4. Chronic kidney disease. 5. History of myeloma. 6. Possible hypercalcemia. PLAN: Increase lactulose. Cardiology consultation. Hold beta-blockers. Check an ionized calcium level. Continue stress ulcer prophylaxis. Monitor ammonia level. Monitoring on telemetry. Sp Vicente M.D. DR: DYLAN JOB#: [id number] CC:
[2016-11-23 18:19] LABS: MEAN CORPUSCULAR HEMOGLOBIN 31.6 PG (27.0-31.0); MEAN CORPUSCULAR HGB CONC 34.5 G/DL (32.0-36.0); MEAN CORPUSCULAR VOLUME 92 FL (80-99); MEAN PLATELET VOLUME 9.6 FL (6.5-10.1); PLATELET COUNT 36 K/UL (150-450); RED BLOOD COUNT 2.64 M/UL (4.70-6.10); RED CELL DISTRIBUTION WIDTH 14.4 % (11.6-14.8); WHITE BLOOD COUNT 3.6 K/UL (4.8-10.8)
[2016-11-23 19:05] LABS: ANISOCYTOSIS 1+; BASOPHILS % (MANUAL) 1 % (0-2); EOSINOPHILS % (MANUAL) 4 % (0-3); HYPOCHROMASIA 1+; LYMPHOCYTES % (MANUAL) 19 % (20-45); NEUTROPHILS % (MANUAL) 69 % (45-75); PLATELET MORPHOLOGY NORMAL; TOTAL CELLS COUNTED 100
[2016-11-23 19:06] LABS: BAND NEUTROPHILS % (MANUAL) 0 % (0-8); PLATELET ESTIMATE DECREASED
[2016-11-23 20:00] VITALS: BP 124/47
[2016-11-23] MEDS: Tamsulosin 0.4mg cap ORAL SCH (21:25)
[2016-11-24] VITALS: BP 114/78
[2016-11-24 04:00] VITALS: BP 126/78
--- NOTE | 2016-11-24 04:30 | Progress Note ---
DATE: 11/23/2016 CARDIOLOGY PROGRESS NOTE SUBJECTIVE: The patient is more alert and interactive, but refusing IV fluids and IV access at this time. He is afebrile. OBJECTIVE: VITAL SIGNS: Blood pressure is 154/85, earlier now 118/72, heart rate 74, respiratory rate 20, and afebrile. NECK: Supple. LUNGS: Clear. No asterixis. CARDIAC: Regular. ABDOMEN: Soft. EXTREMITIES: No edema. LABORATORY AND DIAGNOSTIC DATA: Labs are noted. IMPRESSION: 1. Hypercalcemia. 2. Metabolic and hepatic encephalopathy. 3. Alcoholic liver disease. 4. Multiple myeloma. 5. Sinus bradycardia, resolving. 6. Pancytopenia. PLAN: Titrate beta-elly dosing. Hold diuretics. Encourage intravenous access. Pamidronate infusion. Followup laboratory studies. Transfusion for active bleeding or hemoglobin below 8 g. Jeronimo Anthony M.D. DR: Lamar JOB#: [id number] CC:
[2016-11-24 08:00] VITALS: BP 101/54
[2016-11-24] MEDS ORDERED: Pamidronate Disodium Inj 60 MG in Sodium Chloride 550 ML IVPB ONE ×2 (08:00→09:30)
[2016-11-24] MEDS: Lactulose 20gm/30ml UDC ORAL SCH ×3 (08:18→17:09)
[2016-11-24] MEDS: Thiamine 100mg tab ORAL SCH (08:19)
--- NOTE | 2016-11-24 09:24 | General Progress Note ---
Assessment/Plan Problem List: (1) Hypercalcemia ICD Codes: E83.52 - Hypercalcemia SNOMED: 46334346 (2) Thrombocytopenia ICD Codes: D69.6 - Thrombocytopenia, unspecified SNOMED: 289075123 (3) Hepatic encephalopathy ICD Codes: K72.90 - Hepatic failure, unspecified without coma SNOMED: 73610924 (4) Altered level of consciousness ICD Codes: R40.4 - Transient alteration of awareness SNOMED: 0325261 Status: stable Assessment/Plan cont ivf lactulose aredia x 1 for hypercalcemia anxiolytics HR better of b-elly Subjective ROS Limited/Unobtainable: Yes Constitutional: Reports: malaise, weakness HEENT: Reports: no symptoms Cardiovascular: Reports: no symptoms Respiratory: Reports: no symptoms Gastrointestinal/Abdominal: Reports: no symptoms Genitourinary: Reports: no symptoms Neurologic/Psychiatric: Reports: pre-existing deficit Endocrine: Reports: no symptoms Hematologic/Lymphatic: Reports: anemia Allergies: Coded Allergies: IODINE (Verified Allergy, Mild, 09/15/16) All Systems: reviewed and negative except above Subjective remains confused and agitated. bradycardia better. on lactulose. elevated Ca noted. Objective Last 24 Hour Vital Signs Date Time Temp Pulse Resp B/P (MAP) Pulse Ox O2 Delivery O2 Flow Rate FiO2 11/24/16 08:00 97.9 75 20 101/54 98 Room Air 11/24/16 04:00 97.9 78 20 126/78 100 Room Air 11/24/16 00:00 97.0 78 18 114/78 99 11/23/16 20:00 98.1 76 16 124/47 97 11/23/16 16:00 97.7 77 22 122/80 99 Room Air 11/23/16 16:00 97.9 74 20 118/72 Room Air 98 11/23/16 12:00 97.9 74 20 118/72 99 Room Air Intake and Output 11/24/16 11/25/16 19:00 07:00 # Bowel Movements 1 Laboratory Tests 11/23/16 18:07: White Blood Count 3.6L, Red Blood Count 2.64L, Hemoglobin 8.3L, Hematocrit 24.2L , Mean Corpuscular Volume 92, Mean Corpuscular Hemoglobin 31.6H, Mean Corpuscular Hemoglobin Concent 34.5, Red Cell Distribution Width 14.4, Platelet Count 36L, Mean Platelet Volume 9.6, Neutrophils (%) (Auto) , Lymphocytes (%) ( Auto) , Monocytes (%) (Auto) , Eosinophils (%) (Auto) , Basophils (%) (Auto) , Differential Total Cells Counted 100, Neutrophils % (Manual) 69, Lymphocytes % ( Manual) 19L, Monocytes % (Manual) 7, Eosinophils % (Manual) 4H, Basophils % ( Manual) 1, Band Neutrophils 0, Platelet Estimate DecreasedL, Platelet Morphology Normal, Hypochromasia 1+, Anisocytosis 1+ Height (Feet): 5 Height (Inches): 5.00 Weight (Pounds): 160 General Appearance: WD/WN, alert, confused Neck: supple Cardiovascular: regular rhythm Respiratory/Chest: lungs clear Abdomen: normal bowel sounds, non tender, soft, no organomegaly, no mass Edema: no edema noted Arm (L), no edema noted Arm (R), no edema noted Leg (L), no edema noted Leg (R), no edema noted Pedal (L), no edema noted Pedal (R), no edema noted Generalized Neurologic: disoriented THALIA BLACK Nov 24, 2016 09:24
[2016-11-24 10:35] LABS: MEAN CORPUSCULAR HEMOGLOBIN 29.5 PG (27.0-31.0); MEAN CORPUSCULAR HGB CONC 32.6 G/DL (32.0-36.0); MEAN CORPUSCULAR VOLUME 91 FL (80-99); MEAN PLATELET VOLUME 8.3 FL (6.5-10.1); PLATELET COUNT 38 K/UL (150-450); RED BLOOD COUNT 2.87 M/UL (4.70-6.10); RED CELL DISTRIBUTION WIDTH 13.9 % (11.6-14.8); WHITE BLOOD COUNT 3.4 K/UL (4.8-10.8)
[2016-11-24 10:52] LABS: ANION GAP 9 (5-15); CALCIUM 11.8 mg/dL (8.6-10.2); CARBON DIOXIDE 20 mEQ/L (20-30); CHLORIDE 113 mEQ/L (98-107); CREATININE 0.8 mg/dL (0.7-1.2); GLOMERULAR FILTRATION RATE > 60 mL/min (>60); HEMOLYSIS 5; POTASSIUM 3.6 mEQ/L (3.4-4.9); SODIUM 142 mEQ/L (135-145)
[2016-11-24 11:14] LABS: BAND NEUTROPHILS % (MANUAL) 0 % (0-8); BASOPHILS % (MANUAL) 0 % (0-2); EOSINOPHILS % (MANUAL) 5 % (0-3); HYPOCHROMASIA 1+; LYMPHOCYTES % (MANUAL) 21 % (20-45); NEUTROPHILS % (MANUAL) 70 % (45-75); PLATELET ESTIMATE DECREASED; PLATELET MORPHOLOGY NORMAL; TOTAL CELLS COUNTED 100
[2016-11-24 12:00] VITALS: BP 120/75
[2016-11-24 16:00] VITALS: BP 112/76
[2016-11-24] MEDS ORDERED: KCl 10% 20 mEq/15ml liquid ORAL ONE (17:00)
[2016-11-24 20:15] VITALS: BP 112/71
[2016-11-24] MEDS: Tamsulosin 0.4mg cap ORAL SCH (20:56)
[2016-11-24] MEDS: Propranolol 10mg tab ORAL SCH (21:54)
[2016-11-25] VITALS (7 sets, daily range): BP systolic 100–110; BP diastolic 60–69
--- NOTE | 2016-11-25 00:45 | Progress Note ---
DATE: 11/24/2016 CARDIOLOGY PROGRESS NOTE SUBJECTIVE: The patient was agitated and combative this morning, refusing medications and IV access. The patient's daughter was contacted. She came to the hospital and convinced her father to cooperate with care. The patient has an elevated ionized calcium level and Pamidronate has been ordered, but was not given earlier because of lack of IV access. The patient is now going to receive the drug. Monitored rhythm sinus. Heart rate 60s and 70s. Ammonia level down to 55. OBJECTIVE: LUNGS: Good breath sounds. HEART: Regular rhythm and rate. Normal S1 and S2. ABDOMEN: Soft. EXTREMITIES: No edema. LABORATORY DATA: Labs noted. IMPRESSION: 1. Pancytopenia. 2. Hypercalcemia. 3. Hepatic encephalopathy. 4. Sinus bradycardia, improved off propranolol. 5. Alcoholic liver disease. 6. Multiple myeloma. PLAN: 1. Restart propranolol. 2. We will hold parameters for low range heart rates. 3. Pamidronate as ordered. 4. Titrate lactulose. 5. Hold diuretics and start transfuse platelets for any active bleeding. 6. Transfuse packed red blood cells for hemoglobin less than 8 g. Jeronimo Anthony M.D. DR: Lisa JOB#: [id number] CC:
[2016-11-25] MEDS: Propranolol 10mg tab ORAL SCH ×3 (06:26→21:47)
--- NOTE | 2016-11-25 08:49 | General Progress Note ---
Assessment/Plan Problem List: (1) Hypercalcemia ICD Codes: E83.52 - Hypercalcemia SNOMED: 96949154 (2) Thrombocytopenia ICD Codes: D69.6 - Thrombocytopenia, unspecified SNOMED: 799154803 (3) Hepatic encephalopathy ICD Codes: K72.90 - Hepatic failure, unspecified without coma SNOMED: 89299861 (4) Altered level of consciousness ICD Codes: R40.4 - Transient alteration of awareness SNOMED: 2059073 Status: stable, progressing Assessment/Plan cont ivf lactulose monitor ammonia level monitor ca level anxiolytics HR better of b-elly check urine studies Subjective ROS Limited/Unobtainable: Yes Constitutional: Reports: malaise, weakness HEENT: Reports: no symptoms Cardiovascular: Reports: no symptoms Respiratory: Reports: no symptoms Gastrointestinal/Abdominal: Reports: no symptoms Genitourinary: Reports: no symptoms Neurologic/Psychiatric: Reports: pre-existing deficit Endocrine: Reports: no symptoms Hematologic/Lymphatic: Reports: anemia Allergies: Coded Allergies: IODINE (Verified Allergy, Mild, 09/15/16) All Systems: reviewed and negative except above Subjective less confused. remains uncooperative at times.pulled out iv. meeds assistance with eating. ammonia level improving. s/p aredia x 1. Objective Last 24 Hour Vital Signs Date Time Temp Pulse Resp B/P (MAP) Pulse Ox O2 Delivery O2 Flow Rate FiO2 11/25/16 08:02 96.6 65 20 103/60 97 Room Air 11/25/16 06:26 77 127/74 11/25/16 04:00 97.0 66 18 102/63 99 Room Air 11/25/16 00:00 98.1 61 20 105/66 94 Room Air 11/24/16 21:54 78 147/78 11/24/16 20:15 98.2 99 20 112/71 99 Room Air 11/24/16 16:00 98.0 71 22 112/76 96 Room Air 11/24/16 12:00 97.8 68 21 120/75 98 Room Air Laboratory Tests 11/24/16 10:15: White Blood Count 3.4L, Red Blood Count 2.87L, Hemoglobin 8.5L, Hematocrit 26.0L , Mean Corpuscular Volume 91, Mean Corpuscular Hemoglobin 29.5, Mean Corpuscular Hemoglobin Concent 32.6, Red Cell Distribution Width 13.9, Platelet Count 38L, Mean Platelet Volume 8.3, Neutrophils (%) (Auto) , Lymphocytes (%) ( Auto) , Monocytes (%) (Auto) , Eosinophils (%) (Auto) , Basophils (%) (Auto) , Differential Total Cells Counted 100, Neutrophils % (Manual) 70, Lymphocytes % ( Manual) 21, Monocytes % (Manual) 4, Eosinophils % (Manual) 5H, Basophils % ( Manual) 0, Band Neutrophils 0, Platelet Estimate DecreasedL, Platelet Morphology Normal, Hypochromasia 1+, Sodium Level 142, Potassium Level 3.6, Chloride Level 113H, Carbon Dioxide Level 20, Anion Gap 9, Blood Urea Nitrogen 13, Creatinine 0.8, Estimat Glomerular Filtration Rate > 60, Glucose Level 115H , Calcium Level 11.8H, Ammonia 91H Height (Feet): 5 Height (Inches): 5.00 Weight (Pounds): 160 Objective General Appearance: WD/WN, alert, confused Neck: supple Cardiovascular: regular rhythm Respiratory/Chest: lungs clear Abdomen: normal bowel sounds, non tender, soft, no organomegaly, no mass Edema: no edema noted Arm (L), no edema noted Arm (R), no edema noted Leg (L), no edema noted Leg (R), no edema noted Pedal (L), no edema noted Pedal (R), no edema noted Generalized Neurologic: disoriented THALIA BLACK Nov 25, 2016 08:49
[2016-11-25] MEDS: Lactulose 20gm/30ml UDC ORAL SCH ×3 (08:50→18:35)
[2016-11-25] MEDS: Thiamine 100mg tab ORAL SCH (08:51)
[2016-11-25 11:49] LABS: IONIZED CALCIUM 1.43 mmol/L (1.10-1.35)
[2016-11-25 11:51] LABS: ALANINE AMINOTRANSFERASE 19 U/L (3-41); ALBUMIN/GLOBULIN RATIO 0.9 (1.0-2.7); ANION GAP 8 (5-15); ASPARTATE AMINO TRANSFERASE 31 U/L (5-40); CALCIUM 11.7 mg/dL (8.6-10.2); CARBON DIOXIDE 23 mEQ/L (20-30); CHLORIDE 108 mEQ/L (98-107); CREATININE 0.8 mg/dL (0.7-1.2); GLOMERULAR FILTRATION RATE > 60 mL/min (>60); HEMOLYSIS 1; POTASSIUM 3.8 mEQ/L (3.4-4.9); SODIUM 139 mEQ/L (135-145); TOTAL PROTEIN 6.1 g/dL (6.6-8.7)
[2016-11-25 12:08] LABS: BILIRUBIN,DIRECT 0.3 mg/dL (0.1-0.3)
[2016-11-25] MEDS: Tamsulosin 0.4mg cap ORAL SCH (21:47)
[2016-11-26] VITALS (7 sets, daily range): BP systolic 94–121; BP diastolic 50–72
[2016-11-26] MEDS: Propranolol 10mg tab ORAL SCH ×3 (06:00→22:00)
[2016-11-26] MEDS ORDERED: Tubing IV Secondary IV ONE (08:53)
--- NOTE | 2016-11-26 09:38 | General Progress Note ---
Assessment/Plan Problem List: (1) Hypercalcemia ICD Codes: E83.52 - Hypercalcemia SNOMED: 76204812 (2) Thrombocytopenia ICD Codes: D69.6 - Thrombocytopenia, unspecified SNOMED: 905356587 (3) Hepatic encephalopathy ICD Codes: K72.90 - Hepatic failure, unspecified without coma SNOMED: 86939849 (4) Altered level of consciousness ICD Codes: R40.4 - Transient alteration of awareness SNOMED: 1084104 Status: stable, progressing Assessment/Plan cont ivf lactulose increased monitor ammonia level monitor ca level anxiolytics HR better of b-elly check urine studies- pt refusing collection to med surg Subjective ROS Limited/Unobtainable: Yes Constitutional: Reports: malaise, weakness HEENT: Reports: no symptoms Cardiovascular: Reports: no symptoms Respiratory: Reports: no symptoms Gastrointestinal/Abdominal: Reports: no symptoms Genitourinary: Reports: no symptoms Neurologic/Psychiatric: Reports: pre-existing deficit Endocrine: Reports: no symptoms Hematologic/Lymphatic: Reports: anemia Allergies: Coded Allergies: IODINE (Verified Allergy, Mild, 09/15/16) All Systems: reviewed and negative except above Subjective no events. remains confused. noncompliant with care/meds. Per RN pt is compliant with lactulose. refusing monitor Objective Last 24 Hour Vital Signs Date Time Temp Pulse Resp B/P (MAP) Pulse Ox O2 Delivery O2 Flow Rate FiO2 11/26/16 08:00 97.8 60 20 94/56 98 Room Air 11/26/16 06:00 69 100/59 11/26/16 03:42 98.7 69 19 100/59 96 Room Air 11/25/16 23:50 98.3 64 20 102/61 98 Room Air 11/25/16 21:47 72 110/67 11/25/16 20:05 98.8 72 22 110/67 96 Room Air 11/25/16 15:36 96.3 65 20 100/62 98 Room Air 11/25/16 14:27 63 107/69 11/25/16 11:24 96.8 63 20 107/69 96 Room Air Laboratory Tests 11/25/16 10:00: Sodium Level 139, Potassium Level 3.8, Chloride Level 108H, Carbon Dioxide Level 23, Anion Gap 8, Blood Urea Nitrogen 15, Creatinine 0.8, Estimat Glomerular Filtration Rate > 60, Glucose Level 93, Calcium Level 11.7H, Ionized Calcium (Measured) 1.43H, Total Bilirubin 1.6H, Direct Bilirubin 0.3, Aspartate Amino Transf (AST/SGOT) 31, Alanine Aminotransferase (ALT/SGPT) 19, Alkaline Phosphatase 93, Ammonia 153H, Total Protein 6.1L, Albumin 2.9L, Globulin 3.2, Albumin/Globulin Ratio 0.9L Height (Feet): 5 Height (Inches): 5.00 Weight (Pounds): 160 Objective General Appearance: WD/WN, alert, confused Neck: supple Cardiovascular: regular rhythm Respiratory/Chest: lungs clear Abdomen: normal bowel sounds, non tender, soft, no organomegaly, no mass Edema: no edema noted Arm (L), no edema noted Arm (R), no edema noted Leg (L), no edema noted Leg (R), no edema noted Pedal (L), no edema noted Pedal (R), no edema noted Generalized Neurologic: disoriented THALIA BLACK Nov 26, 2016 09:38
[2016-11-26] MEDS: Thiamine 100mg tab ORAL SCH (09:58)
[2016-11-26] MEDS: Lactulose 20gm/30ml UDC ORAL SCH ×3 (09:59→17:34)
[2016-11-26 11:37] LABS: APPEARANCE,URINE SLIGHTLY CLOUDY; KETONES,URINE NEGATIVE (NEGATIVE); LEUKOCYTE ESTERASE ,URINE 1+ (NEGATIVE); NITRITE,URINE NEGATIVE (NEGATIVE); PH,URINE 6 (4.5-8.0); PROTEIN,URINE NEGATIVE (NEGATIVE); UROBILINOGEN,URINE NORMAL MG/DL (0.0-1.0)
[2016-11-26 11:45] LABS: AMORPHOUS SEDIMENT,UR FEW /LPF; BACTERIA,URINE MODERATE /HPF; RBC,URINE 0-2 /HPF (0 - 0); SQUAMOUS EPITHELIAL CELL,UR OCCASIONAL /LPF (NONE/OCC)
[2016-11-26 11:46] LABS: MUCUS,URINE FEW /LPF (NONE/OCC)
[2016-11-26] MEDS: Tamsulosin 0.4mg cap ORAL SCH (20:35)
--- NOTE | 2016-11-26 21:00 | Progress Note ---
DATE: 11/26/2016 CARDIOLOGY PROGRESS NOTE SUBJECTIVE: The patient is noncompliant with most care. He has taken lactulose apparently. He has not had any nausea or vomiting. No signs of bleeding noted. Urinalysis reviewed. OBJECTIVE: VITAL SIGNS: Blood pressure 94/56, pulse rate 60, respiratory rate 20, and afebrile. NECK: Supple. LUNGS: Clear. CARDIAC: Regular. Normal S1, S2. ABDOMEN: Soft. EXTREMITIES: No ascites. No edema. IMPRESSION: 1. Cirrhosis. 2. End-stage liver disease. 3. Hepatic encephalopathy. 4. Hypercalcemia. 5. Metabolic encephalopathy. 6. Multiple myeloma. 7. Bradycardia, resolved, on lower dose beta-elly. 8. Hypovolemia and dehydration, improved off diuretics. PLAN: Continue lactulose. Recheck lab studies. Recheck ionized calcium. Encourage oral intake. Low dose beta-elly in view of liver disease. Discontinue telemetry. Jeronimo Anthony M.D. DR: Reba JOB#: [id number] CC: LUCIANO
[2016-11-27] VITALS: BP 100/63
[2016-11-27 04:00] VITALS: BP 100/58
[2016-11-27] MEDS: Lactulose 20gm/30ml UDC ORAL SCH ×3 (05:57→21:34)
[2016-11-27] MEDS: Propranolol 10mg tab ORAL SCH ×3 (05:58→21:38)
[2016-11-27 07:41] LABS: MEAN CORPUSCULAR HEMOGLOBIN 31.5 PG (27.0-31.0); MEAN CORPUSCULAR HGB CONC 34.5 G/DL (32.0-36.0); MEAN CORPUSCULAR VOLUME 91 FL (80-99); MEAN PLATELET VOLUME 7.9 FL (6.5-10.1); PLATELET COUNT 42 K/UL (150-450); RED BLOOD COUNT 3.04 M/UL (4.70-6.10); RED CELL DISTRIBUTION WIDTH 14.1 % (11.6-14.8); WHITE BLOOD COUNT 4.5 K/UL (4.8-10.8)
[2016-11-27 07:47] LABS: AMMONIA 74 umol/L (16-60)
[2016-11-27 07:58] LABS: ALANINE AMINOTRANSFERASE 19 U/L (3-41); ALBUMIN/GLOBULIN RATIO 0.8 (1.0-2.7); ANION GAP 10 (5-15); ASPARTATE AMINO TRANSFERASE 32 U/L (5-40); CALCIUM 12.1 mg/dL (8.6-10.2); CARBON DIOXIDE 19 mEQ/L (20-30); CHLORIDE 113 mEQ/L (98-107); CREATININE 0.9 mg/dL (0.7-1.2); GLOMERULAR FILTRATION RATE > 60 mL/min (>60); HEMOLYSIS 3; SODIUM 142 mEQ/L (135-145); TOTAL PROTEIN 6.9 g/dL (6.6-8.7)
[2016-11-27 08:11] LABS: BILIRUBIN,DIRECT 0.3 mg/dL (0.1-0.3)
[2016-11-27 08:15] VITALS: BP 137/71
[2016-11-27 08:15] LABS: ANISOCYTOSIS 1+; BAND NEUTROPHILS % (MANUAL) 0 % (0-8); BASOPHILS % (MANUAL) 0 % (0-2); EOSINOPHILS % (MANUAL) 5 % (0-3); LYMPHOCYTES % (MANUAL) 20 % (20-45); MACROCYTES 1+; NEUTROPHILS % (MANUAL) 68 % (45-75); PLATELET ESTIMATE DECREASED; PLATELET MORPHOLOGY NORMAL; TOTAL CELLS COUNTED 100
--- NOTE | 2016-11-27 08:15 | Progress Note ---
November 25, 2016 CARDIOLOGY SUBJECTIVE: The patient received pamidronate yesterday for high calcium. Today, he is still agitated and confused. Ammonia level has increased. OBJECTIVE: VITAL SIGNS: Blood pressure is 103/60, pulse 65, and respirations 20. NECK: Supple. LUNGS: Clear. CARDIAC: Regular. Normal S1 and S2. ABDOMEN: Soft. EXTREMITIES: No edema. DIAGNOSTIC DATA: Monitored sinus with no bradycardia. IMPRESSION: 1. Encephalopathy. 2. End-stage liver disease. 3. Hypercalcemia. 4. Multiple myeloma. 5. Sinus bradycardia. 6. Anemia. PLAN: 1. Low-dose beta-elly. 2. Titrate lactulose. 3. Monitor electrolytes. 4. Metabolic parameters. 5. Continue to hold diuretics. Jeronimo Anthony M.D. DR: Lamar JOB#: [id number] CC: LUCIANO
[2016-11-27 08:16] LABS: ACANTHOCYTES 1+; HYPOCHROMASIA 1+; OVALOCYTES 1+
[2016-11-27] MEDS: Thiamine 100mg tab ORAL SCH (08:56)
--- NOTE | 2016-11-27 08:59 | General Progress Note ---
Assessment/Plan Problem List: (1) Hypercalcemia ICD Codes: E83.52 - Hypercalcemia SNOMED: 11134858 (2) Thrombocytopenia ICD Codes: D69.6 - Thrombocytopenia, unspecified SNOMED: 074058055 (3) Hepatic encephalopathy ICD Codes: K72.90 - Hepatic failure, unspecified without coma SNOMED: 71234472 (4) Altered level of consciousness ICD Codes: R40.4 - Transient alteration of awareness SNOMED: 9699021 Status: stable Assessment/Plan lactulose increased monitor ammonia level- improving monitor ca level- higher ? added sensipar anxiolytics HR better of b-elly check urine studies- pt refusing collection to med surg Subjective ROS Limited/Unobtainable: Yes Constitutional: Reports: malaise, weakness HEENT: Reports: no symptoms Cardiovascular: Reports: no symptoms Respiratory: Reports: no symptoms Gastrointestinal/Abdominal: Reports: no symptoms Genitourinary: Reports: no symptoms Neurologic/Psychiatric: Reports: pre-existing deficit Endocrine: Reports: no symptoms Hematologic/Lymphatic: Reports: anemia Allergies: Coded Allergies: IODINE (Verified Allergy, Mild, 09/15/16) All Systems: reviewed and negative except above Subjective no events. remains confused. noncompliant with care/meds. Per RN pt is compliant with lactulose. ca higher. Objective Last 24 Hour Vital Signs Date Time Temp Pulse Resp B/P (MAP) Pulse Ox O2 Delivery O2 Flow Rate FiO2 11/27/16 05:58 61 100/58 11/27/16 04:00 98.5 61 21 100/58 100 Room Air 11/27/16 00:00 97.9 70 21 100/63 99 Room Air 11/26/16 22:00 63 98/65 11/26/16 21:00 98.1 63 20 98/65 97 Room Air 98 11/26/16 20:00 98.1 63 20 98/50 97 Room Air 11/26/16 19:57 98.3 73 20 106/64 96 Room Air 11/26/16 16:00 69 11/26/16 16:00 97.9 72 20 121/72 98 Room Air 11/26/16 14:00 64 95/52 11/26/16 12:00 97.4 66 21 95/52 98 Room Air 11/26/16 12:00 64 Laboratory Tests 11/26/16 10:00: Urine Color Pale yellow, Urine Appearance Slightly cloudy, Urine pH 6, Urine Specific [place] 1.020, Urine Protein Negative, Urine Glucose (UA) Negative, Urine Ketones Negative, Urine Occult Blood Negative, Urine Nitrite Negative, Urine Bilirubin Negative, Urine Urobilinogen Normal, Urine Leukocyte Esterase 1+ H, Urine RBC 0-2H, Urine WBC 5-10H, Urine Squamous Epithelial Cells Occasional, Urine Amorphous Sediment FewH, Urine Bacteria ModerateH, Urine Mucus FewH 11/27/16 05:55: White Blood Count 4.5L, Red Blood Count 3.04L, Hemoglobin 9.6L, Hematocrit 27.8L , Mean Corpuscular Volume 91, Mean Corpuscular Hemoglobin 31.5H, Mean Corpuscular Hemoglobin Concent 34.5, Red Cell Distribution Width 14.1, Platelet Count 42L, Mean Platelet Volume 7.9, Neutrophils (%) (Auto) , Lymphocytes (%) ( Auto) , Monocytes (%) (Auto) , Eosinophils (%) (Auto) , Basophils (%) (Auto) , Differential Total Cells Counted 100, Neutrophils % (Manual) 68, Lymphocytes % ( Manual) 20, Monocytes % (Manual) 7, Eosinophils % (Manual) 5H, Basophils % ( Manual) 0, Band Neutrophils 0, Platelet Estimate DecreasedL, Platelet Morphology Normal, Hypochromasia 1+, Anisocytosis 1+, Macrocytosis 1+, Ovalocytes 1+, Acanthocytes 1+, Sodium Level 142, Potassium Level 4.0, Chloride Level 113H, Carbon Dioxide Level 19L, Anion Gap 10, Blood Urea Nitrogen 17, Creatinine 0.9, Estimat Glomerular Filtration Rate > 60, Glucose Level 84, Calcium Level 12.1H, Ionized Calcium (Measured) 1.60*H, Total Bilirubin 1.5H, Direct Bilirubin 0.3, Aspartate Amino Transf (AST/SGOT) 32, Alanine Aminotransferase (ALT/SGPT) 19, Alkaline Phosphatase 103, Ammonia 74H, Total Protein 6.9, Albumin 3.1L, Globulin 3.8, Albumin/Globulin Ratio 0.8L Height (Feet): 5 Height (Inches): 5.00 Weight (Pounds): 160 Objective General Appearance: WD/WN, alert, confused Neck: supple Cardiovascular: regular rhythm Respiratory/Chest: lungs clear Abdomen: normal bowel sounds, non tender, soft, no organomegaly, no mass Edema: no edema noted Arm (L), no edema noted Arm (R), no edema noted Leg (L), no edema noted Leg (R), no edema noted Pedal (L), no edema noted Pedal (R), no edema noted Generalized Neurologic: disoriented THALIA BLACK Nov 27, 2016 08:59
[2016-11-27] MEDS: Sensipar 30mg Tab ORAL SCH ×2 (09:00→10:53)
[2016-11-27 12:16] VITALS: BP 110/67
[2016-11-27 16:04] VITALS: BP 96/58
[2016-11-27 20:00] VITALS: BP 132/76
[2016-11-27] MEDS: Tamsulosin 0.4mg cap ORAL SCH (21:34)
[2016-11-28] VITALS: BP 98/54
[2016-11-28 04:00] VITALS: BP 110/68
[2016-11-28] MEDS: Lactulose 20gm/30ml UDC ORAL SCH ×3 (05:16→21:14)
[2016-11-28] MEDS: Propranolol 10mg tab ORAL SCH ×3 (05:16→21:19)
[2016-11-28 08:00] VITALS: BP 118/72
--- NOTE | 2016-11-28 09:16 | General Progress Note ---
Assessment/Plan Problem List: (1) Hypercalcemia ICD Codes: E83.52 - Hypercalcemia SNOMED: 79082931 (2) Thrombocytopenia ICD Codes: D69.6 - Thrombocytopenia, unspecified SNOMED: 761749399 (3) Hepatic encephalopathy ICD Codes: K72.90 - Hepatic failure, unspecified without coma SNOMED: 47013815 (4) Altered level of consciousness ICD Codes: R40.4 - Transient alteration of awareness SNOMED: 8582564 Assessment/Plan lactulose for elevated ammonia monitor ammonia level monitor ca level- higher. will repeat anxiolytics HR better of b-elly check urine studies- pt refusing collection to med surg poor prognosis. not candidate for chemo(for myeloma) Subjective ROS Limited/Unobtainable: No Constitutional: Reports: malaise, weakness HEENT: Reports: no symptoms Cardiovascular: Reports: no symptoms Respiratory: Reports: no symptoms Gastrointestinal/Abdominal: Reports: no symptoms Genitourinary: Reports: no symptoms Neurologic/Psychiatric: Reports: pre-existing deficit Endocrine: Reports: no symptoms Hematologic/Lymphatic: Reports: no symptoms Allergies: Coded Allergies: IODINE (Verified Allergy, Mild, 09/15/16) All Systems: reviewed and negative except above Subjective no events. remains confused. noncompliant with care/meds. answers simple questions. no cp/sob Objective Last 24 Hour Vital Signs Date Time Temp Pulse Resp B/P (MAP) Pulse Ox O2 Delivery O2 Flow Rate FiO2 11/28/16 08:00 97.4 62 17 118/72 96 Room Air 11/28/16 05:16 61 110/68 11/28/16 04:00 97.9 61 19 110/68 100 Room Air 11/28/16 00:00 97.5 63 21 98/54 99 Room Air 11/27/16 21:38 64 132/76 11/27/16 20:00 97.8 64 20 132/76 99 Room Air 11/27/16 16:04 98.1 69 17 96/58 98 Room Air 11/27/16 13:38 71 103/60 11/27/16 12:16 97.9 69 21 110/67 97 Room Air Height (Feet): 5 Height (Inches): 5.00 Weight (Pounds): 160 Objective General Appearance: WD/WN, alert, confused Neck: supple Cardiovascular: regular rhythm Respiratory/Chest: lungs clear Abdomen: normal bowel sounds, non tender, soft, no organomegaly, no mass Edema: no edema noted Arm (L), no edema noted Arm (R), no edema noted Leg (L), no edema noted Leg (R), no edema noted Pedal (L), no edema noted Pedal (R), no edema noted Generalized Neurologic: disoriented THALIA BLACK Nov 28, 2016 09:16
[2016-11-28] MEDS: Sensipar 30mg Tab ORAL SCH (09:21)
[2016-11-28] MEDS: Thiamine 100mg tab ORAL SCH (09:21)
[2016-11-28] MEDS ORDERED: Pamidronate Disodium Inj 60 MG in Sodium Chloride 550 ML IVPB ONE (11:00)
[2016-11-28 12:00] VITALS: BP 104/57
[2016-11-28 16:00] VITALS: BP 125/71
[2016-11-28 20:00] VITALS: BP 112/64
[2016-11-28] MEDS: Tamsulosin 0.4mg cap ORAL SCH (21:14)
[2016-11-29] VITALS: BP 91/56
[2016-11-29 04:00] VITALS: BP 106/68
[2016-11-29] MEDS: Lactulose 20gm/30ml UDC ORAL SCH ×3 (05:09→20:49)
[2016-11-29] MEDS: Propranolol 10mg tab ORAL SCH ×3 (05:11→20:28)
[2016-11-29 08:15] VITALS: BP 106/54
--- NOTE | 2016-11-29 08:17 | General Progress Note ---
Assessment/Plan Problem List: (1) Hypercalcemia ICD Codes: E83.52 - Hypercalcemia SNOMED: 53135834 (2) Thrombocytopenia ICD Codes: D69.6 - Thrombocytopenia, unspecified SNOMED: 400642791 (3) Hepatic encephalopathy ICD Codes: K72.90 - Hepatic failure, unspecified without coma SNOMED: 26608601 (4) Altered level of consciousness ICD Codes: R40.4 - Transient alteration of awareness SNOMED: 0292339 Status: stable, progressing Assessment/Plan lactulose for elevated ammonia monitor ammonia level monitor ca level- higher. will repeat anxiolytics HR better of b-elly abx ordered for uti to med surg poor prognosis. not candidate for chemo(for myeloma) likely pt baseline consider dc to snf Subjective ROS Limited/Unobtainable: Yes Constitutional: Reports: malaise, weakness HEENT: Reports: no symptoms Cardiovascular: Reports: no symptoms Respiratory: Reports: no symptoms Gastrointestinal/Abdominal: Reports: poor appetite Genitourinary: Reports: no symptoms Neurologic/Psychiatric: Reports: pre-existing deficit Endocrine: Reports: no symptoms Hematologic/Lymphatic: Reports: no symptoms Allergies: Coded Allergies: IODINE (Verified Allergy, Mild, 09/15/16) All Systems: reviewed and negative except above Subjective no events. remains confused. compliant with meds. labs pending. Ucx noted. Objective Last 24 Hour Vital Signs Date Time Temp Pulse Resp B/P (MAP) Pulse Ox O2 Delivery O2 Flow Rate FiO2 11/29/16 05:11 58 106/68 11/29/16 04:00 96.4 58 20 106/68 99 Room Air 11/29/16 00:00 97.0 64 20 91/56 100 Room Air 11/28/16 21:19 83 112/64 11/28/16 20:00 97.9 83 20 112/64 98 Room Air 11/28/16 16:00 98.0 87 18 125/71 95 Room Air 11/28/16 13:57 74 104/57 11/28/16 12:00 98.4 74 19 104/57 97 Room Air Height (Feet): 5 Height (Inches): 5.00 Weight (Pounds): 160 Objective General Appearance: WD/WN, alert, confused Neck: supple Cardiovascular: regular rhythm Respiratory/Chest: lungs clear Abdomen: normal bowel sounds, non tender, soft, no organomegaly, no mass Edema: no edema noted Arm (L), no edema noted Arm (R), no edema noted Leg (L), no edema noted Leg (R), no edema noted Pedal (L), no edema noted Pedal (R), no edema noted Generalized Neurologic: disoriented THALIA BLACK Nov 29, 2016 08:17
[2016-11-29 09:21] LABS: MEAN CORPUSCULAR HEMOGLOBIN 31.8 PG (27.0-31.0); MEAN CORPUSCULAR HGB CONC 35.3 G/DL (32.0-36.0); MEAN CORPUSCULAR VOLUME 90 FL (80-99); MEAN PLATELET VOLUME 8.5 FL (6.5-10.1); PLATELET COUNT 47 K/UL (150-450); RED BLOOD COUNT 3.09 M/UL (4.70-6.10); RED CELL DISTRIBUTION WIDTH 14.8 % (11.6-14.8); WHITE BLOOD COUNT 4.5 K/UL (4.8-10.8)
[2016-11-29 09:31] LABS: ALANINE AMINOTRANSFERASE 18 U/L (3-41); ALBUMIN/GLOBULIN RATIO 0.8 (1.0-2.7); ANION GAP 11 (5-15); ASPARTATE AMINO TRANSFERASE 30 U/L (5-40); CALCIUM 12.2 mg/dL (8.6-10.2); CARBON DIOXIDE 20 mEQ/L (20-30); CHLORIDE 110 mEQ/L (98-107); GLOMERULAR FILTRATION RATE > 60 mL/min (>60); HEMOLYSIS 1; POTASSIUM 3.8 mEQ/L (3.4-4.9); SODIUM 141 mEQ/L (135-145); TOTAL PROTEIN 7.3 g/dL (6.6-8.7)
[2016-11-29 09:33] LABS: AMMONIA 59 umol/L (16-60)
[2016-11-29 09:44] LABS: BILIRUBIN,DIRECT 0.3 mg/dL (0.1-0.3)
[2016-11-29] MEDS: Sensipar 30mg Tab ORAL SCH (09:58)
[2016-11-29] MEDS: Thiamine 100mg tab ORAL SCH (09:58)
[2016-11-29 10:20] LABS: ACANTHOCYTES 1+; BAND NEUTROPHILS % (MANUAL) 1 % (0-8); BASOPHILS % (MANUAL) 0 % (0-2); BLISTER CELL 1+; EOSINOPHILS % (MANUAL) 4 % (0-3); HYPOCHROMASIA 1+; LYMPHOCYTES % (MANUAL) 20 % (20-45); NEUTROPHILS % (MANUAL) 71 % (45-75); PLATELET ESTIMATE DECREASED; PLATELET MORPHOLOGY NORMAL; SCHISTOCYTES 1+; TEAR DROP CELLS 1+; TOTAL CELLS COUNTED 100
[2016-11-29 10:32] LABS: IONIZED CALCIUM 1.66 mmol/L (1.10-1.35)
[2016-11-29 12:01] VITALS: BP 105/55
--- NOTE | 2016-11-29 12:40 | Progress Note ---
DATE: 11/27/2016 CARDIOLOGY PROGRESS NOTE Late entry for 11/27/2016. Subjective: The patient remains confused, agitated, and noncompliant with some care. Concern raised today over worsening calcium levels. OBJECTIVE: Vital Signs: Blood pressure 100/58 earlier 98/50, heart rate 63, and respiratory rate 20. NECK: Supple. LUNGS: Clear. CARDIAC: Regular. Normal S1 and S2. ABDOMEN: Soft. No ascites. EXTREMITIES: No edema. No asterixis. Laboratory Data: White count 4.5 and hemoglobin 9.6. Ionized calcium 1.6. Bicarbonate 19, BUN 17, and creatinine 0.9. Albumin 3.1. IMPRESSION: 1. Hepatic encephalopathy. 2. Hypercalcemia. 3. Toxic and metabolic encephalopathy. 4. Metabolic acidosis. 5. Intravascular volume depletion with hypotension. 6. Pancytopenia with low platelet count of 42,000, hemoglobin of 9.6, and white count of 4.5 likely due to multiple myeloma in the setting of the liver disease. PLAN: 1. The patient received Coumadin two days ago. Sensipar was added. 2. Continuing lactulose with titration. 3. Not stable for discharge. 4. Monitor CBC and signs of bleeding. Jeronimo Anthony M.D. DR: MAN JOB#: [id number] CC:
--- NOTE | 2016-11-29 12:40 | Progress Note ---
DATE: 11/28/2016 CARDIOLOGY PROGRESS NOTE Subjective: The patient has no new complaints. He continues to have episodes of confusion and refusing care. OBJECTIVE: VITAL SIGNS: Blood pressure 118/72, pulse 62, and respirations 17. NECK: Supple. LUNGS: Clear. CARDIAC: Regular. ABDOMEN: Soft. EXTREMITIES: No edema. IMPRESSIONS: 1. Multiple myeloma with pancytopenia and hypercalcemia. 2. Toxic and metabolic encephalopathy. 3. Hepatic encephalopathy. 4. Elevated ammonia level. 5. Hypotension due to intravascular volume depletion, resolving. 6. Sinus bradycardia now asymptomatic on low dose beta-elly. PLAN: 1. Recheck laboratory studies. 2. Titrate therapy. 3. Not stable for discharge. 4. Continue beta-blockade with titration. Jeronimo Anthony M.D. DR: MAN JOB#: [id number] CC:
[2016-11-29 14:30] LABS: CALCIUM 11.4 mg/dL (8.6-10.2); PTH INTACT 183 pg/mL (15-65)
[2016-11-29 15:27] VITALS: BP 103/58
[2016-11-29 20:00] VITALS: BP 103/60
[2016-11-29] MEDS: Tamsulosin 0.4mg cap ORAL SCH (20:29)
[2016-11-30 00:14] VITALS: BP 107/59
[2016-11-30 04:00] VITALS: BP 95/63
[2016-11-30] MEDS: Lactulose 20gm/30ml UDC ORAL SCH ×2 (05:23→15:08)
[2016-11-30] MEDS: Propranolol 10mg tab ORAL SCH ×2 (05:24→13:03)
--- NOTE | 2016-11-30 07:15 | Progress Note ---
November 29, 2016 CARDIOLOGY PROGRESS NOTE Subjective: The patient is doing poorly despite pamidronate. Ionized calcium levels are increasing. He remains confused. In addition, his urine culture is positive with polymicrobial pathogen. OBJECTIVE: Vital Signs: Blood pressure 103/60, pulse 70, respiratory rate 18, and afebrile. NECK: Supple. LUNGS: Clear. CARDIAC: Regular. ABDOMEN: Soft. No ascites. EXTREMITIES: No edema. IMPRESSION: 1. Multiple myeloma. 2. Hypercalcemia. 3. Hepatic encephalopathy. 4. Normalized ammonia level with therapy. 5. Paroxysmal atrial ectopy. PLAN: 1. Await results of parathyroid hormone. 2. Continue IV fluid hydration with diuretic therapy. 3. Continue ammonia. Jeronimo Anthony M.D. DR: MAN JOB#: [id number] CC: LUCIANO
--- NOTE | 2016-11-30 08:11 | General Progress Note ---
Assessment/Plan Problem List: (1) Hypercalcemia ICD Codes: E83.52 - Hypercalcemia SNOMED: 45359881 (2) Thrombocytopenia ICD Codes: D69.6 - Thrombocytopenia, unspecified SNOMED: 314298927 (3) Hepatic encephalopathy ICD Codes: K72.90 - Hepatic failure, unspecified without coma SNOMED: 73625271 (4) Altered level of consciousness ICD Codes: R40.4 - Transient alteration of awareness SNOMED: 3136012 Status: stable, not improved Assessment/Plan lactulose for elevated ammonia monitor ammonia level monitor ca level- higher. will repeat later todat after hydration anxiolytics HR better of b-elly abx to med surg poor prognosis. not candidate for chemo(for myeloma) likely pt baseline consider dc to snf if ca level trending down., can continue hydration at snf Subjective ROS Limited/Unobtainable: Yes Constitutional: Reports: malaise, weakness HEENT: Reports: no symptoms Cardiovascular: Reports: no symptoms Respiratory: Reports: no symptoms Gastrointestinal/Abdominal: Reports: poor appetite, poor fluid intake Genitourinary: Reports: no symptoms Neurologic/Psychiatric: Reports: pre-existing deficit Endocrine: Reports: no symptoms Hematologic/Lymphatic: Reports: no symptoms Allergies: Coded Allergies: IODINE (Verified Allergy, Mild, 09/15/16) All Systems: reviewed and negative except above Subjective no events. remains confused. compliant with meds. labs pending. Ucx noted. on ivf. labs pending for today Objective Last 24 Hour Vital Signs Date Time Temp Pulse Resp B/P (MAP) Pulse Ox O2 Delivery O2 Flow Rate FiO2 11/30/16 05:24 55 95/63 11/30/16 04:00 97.2 55 20 95/63 95 Room Air 11/30/16 00:14 98.0 67 19 107/59 99 Room Air 11/29/16 20:28 79 103/58 11/29/16 20:00 98.0 70 18 103/60 99 Room Air 11/29/16 15:27 97.9 79 20 103/58 100 Room Air 11/29/16 14:29 76 105/55 11/29/16 12:01 97.1 76 20 105/55 97 Room Air 11/29/16 08:15 97.3 68 20 106/54 95 Room Air Laboratory Tests 11/29/16 08:45: White Blood Count 4.5L, Red Blood Count 3.09L, Hemoglobin 9.8L, Hematocrit 27.9L , Mean Corpuscular Volume 90, Mean Corpuscular Hemoglobin 31.8H, Mean Corpuscular Hemoglobin Concent 35.3, Red Cell Distribution Width 14.8, Platelet Count 47L, Mean Platelet Volume 8.5, Neutrophils (%) (Auto) , Lymphocytes (%) ( Auto) , Monocytes (%) (Auto) , Eosinophils (%) (Auto) , Basophils (%) (Auto) , Differential Total Cells Counted 100, Neutrophils % (Manual) 71, Lymphocytes % ( Manual) 20, Monocytes % (Manual) 4, Eosinophils % (Manual) 4H, Basophils % ( Manual) 0, Band Neutrophils 1, Platelet Estimate DecreasedL, Platelet Morphology Normal, Hypochromasia 1+, Tear Drop Cells 1+, Blister Cells 1+, Acanthocytes 1+, Schistocytes 1+, Sodium Level 141, Potassium Level 3.8, Chloride Level 110H, Carbon Dioxide Level 20, Anion Gap 11, Blood Urea Nitrogen 18, Creatinine 1.0, Estimat Glomerular Filtration Rate > 60, Glucose Level 100, Calcium Level 12.2H, Ionized Calcium (Measured) 1.66*H, Total Bilirubin 1.6H, Direct Bilirubin 0.3, Aspartate Amino Transf (AST/SGOT) 30, Alanine Aminotransferase (ALT/SGPT) 18, Alkaline Phosphatase 104, Ammonia 59, Total Protein 7.3, Albumin 3.3L, Globulin 4.0, Albumin/Globulin Ratio 0.8L Height (Feet): 5 Height (Inches): 5.00 Weight (Pounds): 160 Objective General Appearance: WD/WN, alert, confused Neck: supple Cardiovascular: regular rhythm Respiratory/Chest: lungs clear Abdomen: normal bowel sounds, non tender, soft, no organomegaly, no mass Edema: no edema noted Arm (L), no edema noted Arm (R), no edema noted Leg (L), no edema noted Leg (R), no edema noted Pedal (L), no edema noted Pedal (R), no edema noted Generalized Neurologic: disoriented THALIA BLACK Nov 30, 2016 08:11
[2016-11-30 08:22] VITALS: BP 93/60
[2016-11-30] MEDS ORDERED: Spironolactone 25mg tab ORAL SCH (09:00)
[2016-11-30 09:16] VITALS: BP 103/53
[2016-11-30] MEDS: Thiamine 100mg tab ORAL SCH (09:25)
[2016-11-30] MEDS: Sensipar 30mg Tab ORAL SCH (09:25)
[2016-11-30 09:54] LABS: ALANINE AMINOTRANSFERASE 14 U/L (3-41); ALBUMIN/GLOBULIN RATIO 0.8 (1.0-2.7); ANION GAP 10 (5-15); ASPARTATE AMINO TRANSFERASE 25 U/L (5-40); CALCIUM 10.5 mg/dL (8.6-10.2); CARBON DIOXIDE 21 mEQ/L (20-30); CHLORIDE 112 mEQ/L (98-107); CREATININE 0.8 mg/dL (0.7-1.2); GLOMERULAR FILTRATION RATE > 60 mL/min (>60); HEMOLYSIS 4; POTASSIUM 3.4 mEQ/L (3.4-4.9); SODIUM 143 mEQ/L (135-145); TOTAL PROTEIN 6.2 g/dL (6.6-8.7)
[2016-11-30 10:10] LABS: BILIRUBIN,DIRECT 0.3 mg/dL (0.1-0.3)
[2016-11-30 10:24] LABS: IONIZED CALCIUM 1.48 mmol/L (1.10-1.35)
[2016-11-30 12:03] VITALS: BP 96/71
[2016-11-30] MEDS ORDERED: SENSIPAR30 MG ORAL (12:15)
[2016-11-30] MEDS ORDERED: KCl 10% 40mEq/30ml liquid NG ONE (12:15)
[2016-11-30] MEDS ORDERED: MACROBID100 MG ORAL (12:15)
[2016-11-30] MEDS ORDERED: MIACALCIN1 SPRAYS NASAL (12:15)
[2016-11-30] MEDS ORDERED: ALDACTONE25 MG ORAL (12:15)
[2016-11-30 16:00] VITALS: BP 96/60
--- NOTE | 2016-12-01 18:00 | Progress Note ---
DATE: 11/30/2016 CARDIOLOGY PROGRESS NOTE Subjective: The patient is more compliant with therapy. He remains confused. He continues on IV hydration. He is status post pamidronate therapy. OBJECTIVE: Vital Signs: Blood pressure 95/63, pulse 55, respiratory rate 20, and afebrile. Earlier blood pressure was 107/59 with heart rate 67. NECK: Supple. LUNGS: Clear. CARDIAC: Regular. Normal S1 and S2. ABDOMEN: Soft. EXTREMITIES: No edema. Laboratory Data: Ionized calcium improved to 1.48. Potassium 3.4, BUN 18, and creatinine 0.8. Albumin 2.9. Ammonia level yesterday was 59. IMPRESSION: 1. Hepatic encephalopathy, resolved with normalized ammonia level. 2. Multiple myeloma with hypercalcemia, slightly improved. 3. Moderate protein-calorie malnutrition. 4. Alcoholic liver disease. 5. Metabolic acidosis, resolved. 6. Encephalopathy metabolic, chronic. 7. Bradycardia, improved and of no clinical significance. PLAN: 1. Transfer to [facility] facility with continued hydration and concomitant diuretic therapy. 2. Monitor ionized calcium levels. 3. Monitor ammonia levels and titrate lactulose accordingly. 4. The patient is not a candidate for chemotherapy. 5. Continue low-dose beta-elly. Jeronimo Anthony M.D. DR: MAN JOB#: [id number] CC:
--- NOTE | 2016-12-03 16:10 | Cardiology Report ---
APPROVED REPORT EKG Measurement Heart [id number] Normal sinus rhythm Right bundle branch block Abnormal ECG
== END 2016-11-30 17:28 | DRG 441 ==
LOC: EDBD 08:57 → EMR 09:36 → 2E 11:28 → EDBEDREQ 11:43 → 4E 11-26 21:34
DX: K72.90 Hepatic failure, unspecified without coma (principal); G93.41 Metabolic encephalopathy; D61.818 Other pancytopenia; C90.00 Multiple myeloma not having achieved remission; E44.0 Moderate protein-calorie malnutrition; E87.2 Acidosis; D69.6 Thrombocytopenia, unspecified; E83.52 Hypercalcemia; E86.0 Dehydration; E86.1 Hypovolemia; D64.9 Anemia, unspecified; N18.9 Chronic kidney disease, unspecified; I49.1 Atrial premature depolarization; S00.12XA Contusion of left eyelid and periocular area, initial encounter; W19.XXXA Unspecified fall, initial encounter; K21.9 Gastro-esophageal reflux disease without esophagitis; Z88.8 Allergy status to other drugs, medicaments and biological substances; F10.21 Alcohol dependence, in remission; K70.30 Alcoholic cirrhosis of liver without ascites; Z91.19 Patient's noncompliance with other medical treatment and regimen
CPT/HCPCS: 36415; 70551; 71010; 80048; 80053; 81003; 82140; 82248; 82330; 82550; 82553; 82962; 83605; 83970; 84484; 85007; 85025; 85610; 85730; 86850; 86870; 86900; 86901; 86904; 87040; 87081; 87086; 87181; 93005; 99285; J2430

== ENCOUNTER 2016-12-09 12:20 | Emergency (ER) | payer MEDICARE, OTHER ==
[~2016-12-09] VITALS: Ht 172.7 cm; Wt 74.8 kg
[~2016-12-09 12:20] MED LIST changes: +ALDACTONE25 MG ORAL; +MACROBID100 MG ORAL; +MIACALCIN1 SPRAYS NASAL; +MULTIVITAMINS1 EAC8 ORAL; +NORCO 5-325 TA1 EAC1 ORAL
[2016-12-09 12:55] VITALS: BP 103/68
[2016-12-09 14:10] LABS: MEAN CORPUSCULAR HEMOGLOBIN 30.6 PG (27.0-31.0); MEAN CORPUSCULAR HGB CONC 33.9 G/DL (32.0-36.0); MEAN CORPUSCULAR VOLUME 90 FL (80-99); MEAN PLATELET VOLUME 9.5 FL (6.5-10.1); PLATELET COUNT 46 K/UL (150-450); RED BLOOD COUNT 3.11 M/UL (4.70-6.10); RED CELL DISTRIBUTION WIDTH 14.3 % (11.6-14.8)
[2016-12-09 14:18] LABS: INR 1.3 (0.9-1.1); PROTHROMBIN TIME 13.8 SEC (9.30-11.50)
[2016-12-09 14:19] LABS: ALANINE AMINOTRANSFERASE 26 U/L (3-41); ALBUMIN/GLOBULIN RATIO 0.9 (1.0-2.7); ANION GAP 10 (5-15); ASPARTATE AMINO TRANSFERASE 42 U/L (5-40); CALCIUM 10.2 mg/dL (8.6-10.2); CARBON DIOXIDE 24 mEQ/L (20-30); CHLORIDE 104 mEQ/L (98-107); GLOMERULAR FILTRATION RATE > 60 mL/min (>60); HEMOLYSIS 6; LIPASE 78 U/L (< 60); POTASSIUM 3.6 mEQ/L (3.4-4.9); SODIUM 138 mEQ/L (135-145); TOTAL PROTEIN 6.7 g/dL (6.6-8.7)
[2016-12-09 14:31] LABS: BILIRUBIN,DIRECT 0.4 mg/dL (0.1-0.3)
--- NOTE | 2016-12-09 14:33 | Emergency Room Report ---
History of Present Illness General Chief Complaint: Abnormal Labs Source: Patient, Medical Record, EMS Present Illness HPI Patient is a 61-year-old male sent in by alf after increased, thrombocytopenia. The patient had recently been seen and treated at this hospital. Patient was noted to have a previous history thrombocytopenia. Platelet count on laboratory testing at alf was noted to be 39. The patient was sent in for further evaluation. The patient had previously been in the emergency department and had been noted to have a similar platelet count. Per staff patient had been in his usual mental status. Not been any fever. Not having episodes of bleeding. There is no recent trauma. Allergies: Coded Allergies: IODINE (Verified Allergy, Mild, 09/15/16) Patient History Past Medical History: see triage record Reviewed Nursing Documentation: PMH: Agreed, PSxH: Agreed Nursing Documentation-PMH Hx Hypertension: Yes Hx Pacemaker: No Hx Cancer: Yes - Multiple myeloma Hx Gastrointestinal Problems: Yes Hx Dialysis: No - Acute Kidney Failure Hx Neurological Problems: Yes - AMS, non traumatic subderal hemorrhage Hx Cerebrovascular Accident: No - Encephalopathy Hx Dysphasia: Yes Hx Weakness: Yes Review of Systems All Other Systems: limited - by mental status Physical Exam Vital Signs Date Time Temp Pulse Resp B/P (MAP) Pulse Ox O2 Delivery O2 Flow Rate FiO2 12/09/16 12:26 97.9 78 16 100/60 97 Room Air Sp02 EP Interpretation: reviewed, normal General Appearance: normal inspection, well appearing, no apparent distress, alert Head: atraumatic ENT: normal ENT inspection, hearing grossly normal, normal voice Neck: normal inspection, full range of motion, supple, no bony tend Respiratory: normal inspection, lungs clear, normal breath sounds, no respiratory distress, no retraction, no wheezing Cardiovascular #1: regular rate, rhythm, no edema Gastrointestinal: normal inspection, normal bowel sounds, non tender, soft, no guarding, no hernia Genitourinary: no CVA tenderness Musculoskeletal: normal inspection, back normal, normal range of motion Neurologic: normal inspection, alert, oriented x3, responsive, public service representative III-XII nml as tested, speech normal Psychiatric: normal inspection, judgement/insight normal, mood/affect normal Skin: normal inspection, normal color, no rash Medical Decision Making Diagnostic Impression: Primary Impression: Thrombocytopenia Additional Impressions: Cirrhosis Anemia ER Course Patient presented for thrombocytopenia. Differential diagnosis included wasn't limited to chronic liver disease, splenomegaly, aplastic anemia among others. The patient was noted to have no active bleeding. The patient is at his baseline in terms of his platelet count. A repeat platelet count was noted to be 47. The patient does not appear to have any acute changes require transfusion.Patient was discharged back to alf. Nursing staff were advised her return precautions. The patient was transferred home by ambulance. Labs Test 12/09/16 13:40 White Blood Count 4.0 K/UL (4.8-10.8) Red Blood Count 3.11 M/UL (4.70-6.10) Hemoglobin 9.5 G/DL (14.2-18.0) Hematocrit 28.1 % (42.0-52.0) Mean Corpuscular Volume 90 FL (80-99) Mean Corpuscular Hemoglobin 30.6 PG (27.0-31.0) Mean Corpuscular Hemoglobin Concent 33.9 G/DL (32.0-36.0) Red Cell Distribution Width 14.3 % (11.6-14.8) Platelet Count 46 K/UL (150-450) Mean Platelet Volume 9.5 FL (6.5-10.1) Neutrophils (%) (Auto) % (45.0-75.0) Lymphocytes (%) (Auto) % (20.0-45.0) Monocytes (%) (Auto) % (1.0-10.0) Eosinophils (%) (Auto) % (0.0-3.0) Basophils (%) (Auto) % (0.0-2.0) Prothrombin Time 13.8 SEC (9.30-11.50) Prothromb Time International Ratio 1.3 (0.9-1.1) Activated Partial Thromboplast Time 33 SEC (23-33) Sodium Level 138 mEQ/L (135-145) Potassium Level 3.6 mEQ/L (3.4-4.9) Chloride Level 104 mEQ/L (98-107) Carbon Dioxide Level 24 mEQ/L (20-30) Anion Gap 10 (5-15) Blood Urea Nitrogen 10 mg/dL (7-23) Creatinine 1.0 mg/dL (0.7-1.2) Estimat Glomerular Filtration Rate > 60 mL/min (>60) Glucose Level 97 mg/dL (74-106) Calcium Level 10.2 mg/dL (8.6-10.2) Total Bilirubin 1.4 mg/dL (0.0-1.2) Aspartate Amino Transf (AST/SGOT) 42 U/L (5-40) Alanine Aminotransferase (ALT/SGPT) 26 U/L (3-41) Alkaline Phosphatase 109 U/L (40-129) Total Protein 6.7 g/dL (6.6-8.7) Albumin 3.2 g/dL (3.5-5.2) Globulin 3.5 g/dL Albumin/Globulin Ratio 0.9 (1.0-2.7) Lipase 78 U/L (< 60) Last Vital Signs Date Time Temp Pulse Resp B/P (MAP) Pulse Ox O2 Delivery O2 Flow Rate FiO2 12/09/16 12:55 98.1 56 12 103/68 100 Room Air Status: improved Disposition: HOME, SELF-CARE Condition: Stable Referrals: NOT CHOSEN IPA/,REFERRING (PCP) Ernie Grossman Dec 09, 2016 14:33
[2016-12-09 14:43] LABS: BAND NEUTROPHILS % (MANUAL) 1 % (0-8); BASOPHILS % (MANUAL) 0 % (0-2); EOSINOPHILS % (MANUAL) 4 % (0-3); LYMPHOCYTES % (MANUAL) 20 % (20-45); NEUTROPHILS % (MANUAL) 63 % (45-75); PLATELET ESTIMATE DECREASED; PLATELET MORPHOLOGY NORMAL; TOTAL CELLS COUNTED 100
[2016-12-09 14:44] LABS: ACANTHOCYTES 1+; ANISOCYTOSIS 1+; HYPOCHROMASIA 1+; OVALOCYTES 1+
[2016-12-09 15:12] LABS: APPEARANCE,URINE CLEAR; KETONES,URINE NEGATIVE (NEGATIVE); LEUKOCYTE ESTERASE ,URINE NEGATIVE (NEGATIVE); NITRITE,URINE NEGATIVE (NEGATIVE); PH,URINE 7 (4.5-8.0); PROTEIN,URINE NEGATIVE (NEGATIVE); UROBILINOGEN,URINE NORMAL MG/DL (0.0-1.0)
[2016-12-09 15:15] VITALS: BP 103/65
[2016-12-09 15:56] VITALS: BP 103/65
--- NOTE | 2016-12-10 10:09 | Diagnostic Imaging Report ---
Indication: Abdominal pain Technique: CT scan of the abdomen and pelvis utilizing automated exposure control without intravenous or oral contrast. Axial, sagittal and coronal images were obtained. CT dose: Total DLP 608 mGycm; CTDI vol 12.5 mGy Comparison: None Findings: Evaluation of the solid organs is limited without intravenous contrast material. There is mild atelectasis in the lung bases. The liver is lobulated. A few tiny hypodensities are seen in the right lobe of liver measuring up to 4 mm. There is a large right anterior abdominal varix apparently communicating with the right anterior portal vein. The right-sided portal veins are dilated with calcification of the main portal vein and suggestive of portal hypertension. Perisplenic varices are also seen. The spleen is enlarged measuring 15 cm. The adrenal glands and pancreas are grossly unremarkable. Gallstones are seen. There is a small hypodensity within the left kidney measuring 8 mm. There is no hydronephrosis. Fat-containing ventral hernia is present. There is a small hiatal hernia. The small bowel loops are normal in caliber. There is no appendicitis. There is mild wall thickening of the ascending colon with adjacent mesenteric stranding. There is no free intraperitoneal fluid or air. There is a small fat-containing left inguinal hernia. Bladder is grossly unremarkable. Atherosclerotic changes are present. Degenerative changes of the spine are seen. Impression: Mildly lobulated appearance of the liver. Clinical correlation recommended for chronic hepatocellular disease. Large varices of the right anterior abdomen apparently in communication with the right anterior portal vein with enlargement of the portal veins and peripheral calcification of the main portal vein suggestive of portal hypertension. Perisplenic varices. Evaluation limited without contrast and further evaluation with contrast recommended as indicated. Splenomegaly. Cholelithiasis. Small hypodensities of the right lobe the liver and the left kidney not adequately characterized without contrast. These could represent cysts and further evaluation recommended as indicated. Atherosclerotic changes. Wall thickening with mesenteric edema of the ascending colon. Nonspecific colitis not excluded. Clinical correlation recommended. Upper abdominal ventral hernia. Other findings as above. The CT scanner at [facility] is accredited by the [employer] and the scans are performed using protocols designed to limit radiation exposure to as low as reasonably achievable to attain images of sufficient resolution adequate for diagnostic evaluation.
== END 2016-12-09 15:57 | disposition home or self-care (01) ==
LOC: EDBD 12:20 → EMR 12:51
DX: D69.6 Thrombocytopenia, unspecified (principal); K74.60 Unspecified cirrhosis of liver; D64.9 Anemia, unspecified; I10 Essential (primary) hypertension; K80.20 Calculus of gallbladder without cholecystitis without obstruction; R16.1 Splenomegaly, not elsewhere classified; K43.9 Ventral hernia without obstruction or gangrene
CPT/HCPCS: 36415; 74176; 80053; 81003; 82248; 83690; 85007; 85025; 85610; 85730; 96374; 99284; J2405

== ENCOUNTER 2016-12-12 13:08 | Inpatient (IN) | payer MEDICARE, OTHER ==
[~2016-12-12] VITALS: Ht 180.3 cm; Wt 79.4 kg
[2016-12-12 13:49] LABS: MEAN CORPUSCULAR HEMOGLOBIN 29.2 PG (27.0-31.0); MEAN CORPUSCULAR HGB CONC 32.8 G/DL (32.0-36.0); MEAN CORPUSCULAR VOLUME 89 FL (80-99); MEAN PLATELET VOLUME 7.1 FL (6.5-10.1); PLATELET COUNT 43 K/UL (150-450); RED BLOOD COUNT 3.21 M/UL (4.70-6.10); RED CELL DISTRIBUTION WIDTH 13.9 % (11.6-14.8); WHITE BLOOD COUNT 6.1 K/UL (4.8-10.8)
[2016-12-12 13:57] LABS: INR 1.4 (0.9-1.1); PROTHROMBIN TIME 14.7 SEC (9.30-11.50)
--- NOTE | 2016-12-12 13:59 | Diagnostic Imaging Report ---
Indication: Dyspnea Comparison: 11/22/16 A single view chest radiograph was obtained. Findings: Lungs are clear. Cardiothymic silhouette is normal. Bones are slight osteopenic. Impression: No acute disease
[2016-12-12 14:07] LABS: TROPONIN I < 0.30 ng/mL (<=0.30)
[2016-12-12 14:10] LABS: ALANINE AMINOTRANSFERASE 29 U/L (3-41); ALBUMIN/GLOBULIN RATIO 0.8 (1.0-2.7); ANION GAP 12 (5-15); ASPARTATE AMINO TRANSFERASE 43 U/L (5-40); CALCIUM 10.1 mg/dL (8.6-10.2); CARBON DIOXIDE 22 mEQ/L (20-30); CHLORIDE 103 mEQ/L (98-107); CREATININE 1.2 mg/dL (0.7-1.2); GLOMERULAR FILTRATION RATE > 60 mL/min (>60); HEMOLYSIS 7; POTASSIUM 3.2 mEQ/L (3.4-4.9); SODIUM 137 mEQ/L (135-145); TOTAL PROTEIN 5.8 g/dL (6.6-8.7)
[2016-12-12 14:21] LABS: CKMB < 1.5 ng/mL (< 6.7)
--- NOTE | 2016-12-12 14:22 | Emergency Room Report ---
History of Present Illness General Chief Complaint: Syncope Source: Patient, EMS Present Illness HPI At the [facility] the patient had a syncopal episode lasted approximately 3 minutes. This was observed by the INTERNATIONAL TRADE SPECIALIST. His lay down and regained consciousness. The patient does not remember the event. He denies all symptoms - headache, fever, NVD, dysuria, cough, dyspnea, dizziness the patient's been admitted to the hospital recently twice for hepatic encephalopathy and altered level of consciousness. He was seen in ED 3 days ago for alleged thrombocytopenia. His plts were stable. He was discharged back to the facility. Allegedly liver disease from EtOH. Most recent discharge problem list: (1) Hypercalcemia ICD Codes: E83.52 - Hypercalcemia SNOMED: 07249615 (2) Thrombocytopenia ICD Codes: D69.6 - Thrombocytopenia, unspecified SNOMED: 253797663 (3) Hepatic encephalopathy ICD Codes: K72.90 - Hepatic failure, unspecified without coma SNOMED: 49819576 (4) Altered level of consciousness ICD Codes: R40.4 - Transient alteration of awareness Allergies: Coded Allergies: IODINE (Verified Allergy, Mild, 09/15/16) Patient History Past Medical History: see triage record Social History: Reports: alcohol use - prior Social History Narrative [facility] Reviewed Nursing Documentation: PMH: Agreed, PSxH: Agreed Nursing Documentation-PMH Hx Hypertension: Yes Hx Pacemaker: No Hx Cancer: Yes - Multiple myeloma Hx Gastrointestinal Problems: Yes Hx Dialysis: No - Acute Kidney Failure Hx Neurological Problems: Yes - AMS, non traumatic subderal hemorrhage Hx Cerebrovascular Accident: No - Encephalopathy Hx Dysphasia: Yes Hx Weakness: Yes Review of Systems All Other Systems: negative except mentioned in HPI Physical Exam Vital Signs Date Time Temp Pulse Resp B/P (MAP) Pulse Ox O2 Delivery O2 Flow Rate FiO2 12/12/16 13:01 98.1 58 20 100/62 99 Room Air Not orthostatic Sp02 EP Interpretation: reviewed, normal General Appearance: thin, Chronically Ill Head: normocephalic, atraumatic Eyes: bilateral eye PERRL, bilateral eye scleral icterus ENT: moist mucus membranes - no lingual macerations Neck: supple Respiratory: lungs clear, normal breath sounds Cardiovascular #1: regular rate, rhythm Cardiovascular #2: 2+ radial (R) Gastrointestinal: normal inspection, normal bowel sounds, non tender, no mass, non-distended Musculoskeletal: back normal, gait/station normal, normal range of motion Neurologic: alert, motor strength/tone normal, DTRs symmetric, sensory intact, cerebellar normal, normal gait, speech normal, other - asterixis, oriented - OX2 Psychiatric: depressed affect Skin: normal inspection, warm/dry, other - sallo Medical Decision Making Diagnostic Impression: Primary Impression: Syncope Qualified Codes: R55 - Syncope and collapse Additional Impressions: Hepatic encephalopathy Thrombocytopenia Coagulopathy Anemia Qualified Codes: D64.9 - Anemia, unspecified ER Course Patient presents post witnessed syncopal episode. No seizure activity noted. DDx: arrhythmia, dehydration, vasovagal amongst others. Need to exclude cardiac cause. Patient answers all questions, but appears might be confabulating. Tx to eval for encephalopathy, IV hydration. Needs cardiac monitoring. With low platelets need to exclude bleed. EKG, CXR unremarkable. Labs significant for nl WBC, low H/H (stable for months) , low platelets, elevated ammonia, normal troponin. Lactulose given. Patient improved but need cardiac monitoring and treatment of elevated ammonia. Admit Tele Dr. Anthony. Laboratory Tests Test 12/12/16 13:25 White Blood Count 6.1 K/UL (4.8-10.8) Red Blood Count 3.21 M/UL (4.70-6.10) L Hemoglobin 9.4 G/DL (14.2-18.0) L Hematocrit 28.5 % (42.0-52.0) L Mean Corpuscular Volume 89 FL (80-99) Mean Corpuscular Hemoglobin 29.2 PG (27.0-31.0) Mean Corpuscular Hemoglobin Concent 32.8 G/DL (32.0-36.0) Red Cell Distribution Width 13.9 % (11.6-14.8) Platelet Count 43 K/UL (150-450) L Mean Platelet Volume 7.1 FL (6.5-10.1) Neutrophils (%) (Auto) % (45.0-75.0) Lymphocytes (%) (Auto) % (20.0-45.0) Monocytes (%) (Auto) % (1.0-10.0) Eosinophils (%) (Auto) % (0.0-3.0) Basophils (%) (Auto) % (0.0-2.0) Differential Total Cells Counted 100 Neutrophils % (Manual) 80 % (45-75) H Lymphocytes % (Manual) 8 % (20-45) L Monocytes % (Manual) 9 % (1-10) Eosinophils % (Manual) 1 % (0-3) Basophils % (Manual) 0 % (0-2) Band Neutrophils 2 % (0-8) Platelet Estimate Decreased L Platelet Morphology Normal Polychromasia 1+ Hypochromasia 1+ Anisocytosis 1+ Prothrombin Time 14.7 SEC (9.30-11.50) H Prothrombin Time INR 1.4 (0.9-1.1) H PTT 35 SEC (23-33) H Sodium Level 137 mEQ/L (135-145) Potassium Level 3.2 mEQ/L (3.4-4.9) L Chloride Level 103 mEQ/L (98-107) Carbon Dioxide Level 22 mEQ/L (20-30) Anion Gap 12 (5-15) Blood Urea Nitrogen 8 mg/dL (7-23) Creatinine 1.2 mg/dL (0.7-1.2) Estimate Glomerular Filtration Rate > 60 mL/min (>60) Glucose Level 174 mg/dL (74-106) H Calcium Level 10.1 mg/dL (8.6-10.2) Total Bilirubin 1.9 mg/dL (0.0-1.2) H Direct Bilirubin 0.4 mg/dL (0.1-0.3) H Aspartate Amino Transferase (AST) 43 U/L (5-40) H Alanine Aminotransferase (ALT) 29 U/L (3-41) Alkaline Phosphatase 101 U/L (40-129) Ammonia 95 umol/L (16-60) H Total Creatine Kinase 50 U/L (38-174) Creatine Kinase MB < 1.5 ng/mL (< 6.7) Creatine Kinase MB Relative Index Troponin I < 0.30 ng/mL (<=0.30) Pro-B-Type Natriuretic Peptide 116 pg/mL (0-125) Total Protein 5.8 g/dL (6.6-8.7) L Albumin 2.7 g/dL (3.5-5.2) L Globulin 3.1 g/dL Albumin/Globulin Ratio 0.8 (1.0-2.7) L EKG Diagnostic Results Rate: bradycardiac ST Segments: no acute changes Rhythm Strip Diag. Results EP Interpretation: yes Rhythm: no PVC's, no ectopy, other - bradycardia Chest X-Ray Diagnostic Results Chest X-Ray Diagnostic Results : Chest X-Ray Ordered: Yes # of Views/Limited/Complete: 1 View Indication: Other EP Interpretation: Yes Interpretation: no consolidation, no effusion, no pneumothorax, no acute cardiopulmonary disease, other - old rib fx R Impression: No acute disease Electronically Signed by: Jeronimo Valiente MD Last Vital Signs Date Time Temp Pulse Resp B/P (MAP) Pulse Ox O2 Delivery O2 Flow Rate FiO2 12/13/16 00:00 98.2 62 18 97/55 96 Room Air Status: improved Disposition: ADMITTED INPATIENT Condition: Serious Referrals: NON PHYSICIAN (PCP) Jeronimo Valiente M.D. Dec 12, 2016 14:22
[2016-12-12 14:23] VITALS: BP 96/55
[2016-12-12 14:29] VITALS: BP 96/55
[2016-12-12] MEDS ORDERED: Lactulose 20gm/30ml UDC ORAL ONE (14:30)
[2016-12-12 14:32] LABS: BILIRUBIN,DIRECT 0.4 mg/dL (0.1-0.3)
--- NOTE | 2016-12-12 14:42 | Diagnostic Imaging Report ---
Indication: Headache syncope Technique: Contiguous 5 mm thick transaxial imaging of the head obtained in a Siemens Sensation [address] scanner. Soft tissue and bone windows generated. Total Dose length Product (DLP): [address] Dose Index Volume (CTDIvol): 70.38, 0.15 mGy Comparison: none Findings: There is mild prominence of the ventricles, basal cisterns, and cerebral sulci consistent with atrophy. Mild, nonspecific, white matter hypoattenuation is noted throughout the brain consistent with chronic small vessel disease. There is no midline shift, edema, acute hemorrhage, mass effect, or abnormal extra-axial fluid collections. There is post fracture deformity involving portions of the left maxillary sinus, left side of the arch and portions of the left bony orbit Impression: No acute intracranial bleed, mass effect or edema.. Mild atrophy of the brain. Nonspecific white matter hypoattenuation probably due to chronic small vessel disease. Old left orbital/maxillary trauma The CT scanner at [facility] is accredited by the [employer] and the scans are performed using dose optimization techniques as appropriate to a performed exam including Automatic Exposure control.
[2016-12-12 16:00] VITALS: BP 103/60
[2016-12-12 16:54] LABS: BAND NEUTROPHILS % (MANUAL) 2 % (0-8); EOSINOPHILS % (MANUAL) 1 % (0-3); LYMPHOCYTES % (MANUAL) 8 % (20-45); NEUTROPHILS % (MANUAL) 80 % (45-75)
[2016-12-12 16:55] LABS: ANISOCYTOSIS 1+; BASOPHILS % (MANUAL) 0 % (0-2); PLATELET ESTIMATE DECREASED; TOTAL CELLS COUNTED 100
[2016-12-12 16:56] LABS: HYPOCHROMASIA 1+; PLATELET MORPHOLOGY NORMAL; POLYCHROMASIA 1+
[2016-12-12 20:00] VITALS: BP 99/60
[2016-12-12] MEDS: Lactulose 20gm/30ml UDC ORAL SCH (20:00)
[2016-12-12] MEDS ORDERED: KCl 10% 20 mEq/15ml liquid ORAL ONE (20:30)
[2016-12-12] MEDS: NS w/KCl 20mEq 1,000 ML IV SCH (20:49)
[2016-12-12] MEDS: Tamsulosin 0.4mg cap ORAL SCH (21:30)
[2016-12-13] VITALS (7 sets, daily range): BP systolic 93–117; BP diastolic 49–66
--- NOTE | 2016-12-13 03:30 | History and Physical Report ---
DATE OF ADMISSION: 12/12/2016 CARDIOLOGY CONSULTATION CONSULTING PHYSICIAN: Jeronimo Anthony M.D. REQUESTING PHYSICIAN: Sp Vicente M.D. REASON FOR CONSULTATION: Syncope. History Of Present Illness: This is a 61-year-old male with end-stage liver disease and multiple myeloma, who resides at an assisted living facility. He had a witnessed syncopal episode today that lasted several minutes. It was witnessed by ABSTRACT MANAGER. He was laid down and regained consciousness. It is unclear what he was doing at the start of the event. He did not have any seizure activity noted nor any incontinence. The patient was sent to this emergency room and his initial vitals revealed blood pressure 100/62 with heart rate of 58 and respiratory rate of 20 with normal temperature of 98.1. Past Medical History: Multiple myeloma, thrombocytopenia, hypercalcemia, chronic kidney disease, end-stage liver disease due to alcoholism, and history of subdural hemorrhage. ALLERGIES: Include iodine. Social History: No current smoking or substance abuse. He has history of alcoholism. MEDICATIONS: Prior to admission, reviewed and reconciled. Review Of Systems: Not obtainable reliably from the patient. Pertinent data from records and [facility] staff is outlined above. In addition, at the time of my evaluation, the patient's daughter was present and she states that his current mental status is actually at his current baseline. He is alert and responsive with slow response times and appropriate according to her information. PHYSICAL EXAMINATION: HEENT: Temporal wasting. Mild icterus. Oropharynx clear. NECK: Supple. LUNGS: Clear. CARDIAC: Regular. Normal S1, S2 with no murmur. ABDOMEN: Soft. No ascites. EXTREMITIES: No edema. Laboratory Studies: White count 6.1, hemoglobin 9.4, and platelets 43,000. Sodium 137, potassium 3.2, BUN 8, creatinine 1.2, bicarbonate 22. Total bilirubin 1.9, ammonia 95, and albumin 2.7. INR is 1.4. IMPRESSION: 1. Syncopal episode appears to be due to hypovolemia and bradycardia with probable cerebral hypoperfusion as a result. 2. Hypokalemia. 3. End-stage liver disease. 4. Sinus bradycardia, on beta-elly therapy. 5. Mild hypovolemia, on diuretic therapy. 6. Thrombocytopenia. 7. Anemia. 8. Multiple myeloma. 9. Hepatic encephalopathy with elevated ammonia level. Plan: Cardiac monitoring. Discontinue propranolol (beta-elly). Hold furosemide. Potassium replacement. Recheck electrolytes and magnesium level. Cautiously hydrate. Advance lactulose dosing. Monitor CBC. Presently, no need for any transfusions. The patient's daughter was encouraged to arrange an outpatient hematology/oncology followup with primary oncologist at [facility] to qualify the current status of the patient's myeloma that is remission or not. Jeronimo Anthony M.D. DR: Shelby JOB#: [id number] CC: LUCIANO
[2016-12-13] MEDS: NS w/KCl 20mEq 1,000 ML IV SCH ×2 (06:30→16:48)
[2016-12-13 08:26] LABS: MEAN CORPUSCULAR HEMOGLOBIN 29.6 PG (27.0-31.0); MEAN CORPUSCULAR HGB CONC 33.1 G/DL (32.0-36.0); MEAN CORPUSCULAR VOLUME 89 FL (80-99); MEAN PLATELET VOLUME 11.1 FL (6.5-10.1); PLATELET COUNT 26 K/UL (150-450); RED BLOOD COUNT 2.76 M/UL (4.70-6.10); RED CELL DISTRIBUTION WIDTH 14.2 % (11.6-14.8); WHITE BLOOD COUNT 2.9 K/UL (4.8-10.8)
[2016-12-13 08:27] LABS: ALANINE AMINOTRANSFERASE 26 U/L (3-41); ANION GAP 9 (5-15); ASPARTATE AMINO TRANSFERASE 38 U/L (5-40); CALCIUM 10.3 mg/dL (8.6-10.2); CARBON DIOXIDE 24 mEQ/L (20-30); CHLORIDE 106 mEQ/L (98-107); CREATININE 1.1 mg/dL (0.7-1.2); GLOMERULAR FILTRATION RATE > 60 mL/min (>60); HEMOLYSIS 3; MAGNESIUM 1.1 mg/dL (1.7-2.5); POTASSIUM 4.1 mEQ/L (3.4-4.9); SODIUM 139 mEQ/L (135-145); TOTAL PROTEIN 5.5 g/dL (6.6-8.7)
[2016-12-13 08:32] LABS: AMMONIA 42 umol/L (16-60)
[2016-12-13] MEDS: Sensipar 30mg Tab ORAL SCH (08:36)
[2016-12-13] MEDS: Spironolactone 25mg tab ORAL SCH (08:37)
[2016-12-13] MEDS: Lactulose 20gm/30ml UDC ORAL SCH ×3 (08:37→17:54)
[2016-12-13] MEDS: Thiamine 100mg tab ORAL SCH (08:37)
[2016-12-13 08:48] LABS: BILIRUBIN,DIRECT 0.3 mg/dL (0.1-0.3)
[2016-12-13 09:47] LABS: BAND NEUTROPHILS % (MANUAL) 0 % (0-8); BASOPHILS % (MANUAL) 0 % (0-2); EOSINOPHILS % (MANUAL) 5 % (0-3); LYMPHOCYTES % (MANUAL) 20 % (20-45); NEUTROPHILS % (MANUAL) 70 % (45-75); PLATELET ESTIMATE DECREASED; PLATELET MORPHOLOGY NORMAL; TOTAL CELLS COUNTED 100
[2016-12-13 09:48] LABS: ACANTHOCYTES 1+; HYPOCHROMASIA 1+; OVALOCYTES 1+; SCHISTOCYTES 1+; TEAR DROP CELLS 1+
[2016-12-13] MEDS: Tamsulosin 0.4mg cap ORAL SCH (20:59)
[2016-12-14 04:29] VITALS: BP 123/54
--- NOTE | 2016-12-14 07:51 | General Progress Note ---
Assessment/Plan Problem List: (1) Anemia ICD Codes: D64.9 - Anemia, unspecified SNOMED: 137335848 Qualifiers: Qualified Codes: D64.9 - Anemia, unspecified (2) Coagulopathy ICD Codes: D68.9 - Coagulation defect, unspecified SNOMED: 36904688 (3) Thrombocytopenia ICD Codes: D69.6 - Thrombocytopenia, unspecified SNOMED: 475522762 (4) Hepatic encephalopathy ICD Codes: K72.90 - Hepatic failure, unspecified without coma SNOMED: 50615607 (5) Syncope ICD Codes: R55 - Syncope and collapse SNOMED: 406288914 Qualifiers: Qualified Codes: R55 - Syncope and collapse Status: stable Assessment/Plan ivf monitor bp follow cbc/plts scd no heparin due to low plts lactulose for hepatic encephalopathy poor prognosis Subjective ROS Limited/Unobtainable: Yes Constitutional: Reports: malaise, weakness HEENT: Reports: no symptoms Cardiovascular: Reports: no symptoms Respiratory: Reports: no symptoms Gastrointestinal/Abdominal: Reports: no symptoms Genitourinary: Reports: no symptoms Neurologic/Psychiatric: Reports: pre-existing deficit Endocrine: Reports: no symptoms Hematologic/Lymphatic: Reports: anemia Allergies: Coded Allergies: IODINE (Verified Allergy, Mild, 09/15/16) All Systems: reviewed and negative except above Subjective no events. bp better. confused. labs pending. Objective Last 24 Hour Vital Signs Date Time Temp Pulse Resp B/P (MAP) Pulse Ox O2 Delivery O2 Flow Rate FiO2 12/14/16 04:29 97.9 88 20 123/54 98 Room Air 12/14/16 04:00 59 12/14/16 00:00 61 12/13/16 23:57 98.0 61 20 98/60 98 Room Air 12/13/16 20:45 98.1 61 20 102/64 94 Room Air 12/13/16 20:00 66 12/13/16 16:00 74 12/13/16 15:42 97.3 64 18 99/64 98 Room Air 12/13/16 13:00 97.2 71 18 117/66 96 Room Air 12/13/16 12:00 73 12/13/16 08:39 98.2 68 18 99/61 98 Room Air 12/13/16 08:00 68 Height (Feet): 5 Height (Inches): 11.00 Weight (Pounds): 175 General Appearance: WD/WN, lethargic, confused Neck: supple Cardiovascular: regular rhythm Respiratory/Chest: chest wall non-tender, lungs clear, normal breath sounds, no respiratory distress, no accessory muscle use Abdomen: normal bowel sounds, non tender, soft, no organomegaly, no mass Edema: no edema noted Arm (L), no edema noted Arm (R), no edema noted Leg (L), no edema noted Leg (R), no edema noted Pedal (L), no edema noted Pedal (R), no edema noted Generalized Neurologic: disoriented THALIA BLACK Dec 14, 2016 07:51
[2016-12-14 08:03] VITALS: BP 97/60
[2016-12-14] MEDS: Spironolactone 25mg tab ORAL SCH (09:00)
[2016-12-14] MEDS: Lactulose 20gm/30ml UDC ORAL SCH ×3 (09:07→18:03)
[2016-12-14] MEDS: Sensipar 30mg Tab ORAL SCH (09:07)
[2016-12-14] MEDS: Thiamine 100mg tab ORAL SCH (09:07)
[2016-12-14 09:31] LABS: MEAN CORPUSCULAR HEMOGLOBIN 29.8 PG (27.0-31.0); MEAN CORPUSCULAR HGB CONC 33.1 G/DL (32.0-36.0); MEAN CORPUSCULAR VOLUME 90 FL (80-99); MEAN PLATELET VOLUME 8.5 FL (6.5-10.1); PLATELET COUNT 33 K/UL (150-450); RED BLOOD COUNT 2.92 M/UL (4.70-6.10); RED CELL DISTRIBUTION WIDTH 14.4 % (11.6-14.8); WHITE BLOOD COUNT 3.4 K/UL (4.8-10.8)
[2016-12-14 10:20] LABS: ACANTHOCYTES 1+; ANISOCYTOSIS 1+; BAND NEUTROPHILS % (MANUAL) 0 % (0-8); BASOPHILS % (MANUAL) 0 % (0-2); EOSINOPHILS % (MANUAL) 3 % (0-3); LYMPHOCYTES % (MANUAL) 25 % (20-45); NEUTROPHILS % (MANUAL) 67 % (45-75); PLATELET ESTIMATE DECREASED; PLATELET MORPHOLOGY NORMAL; SCHISTOCYTES 1+; TOTAL CELLS COUNTED 100
[2016-12-14] MEDS ORDERED: Tubing IV Secondary IV ONE (10:29)
[2016-12-14] MEDS ORDERED: NS 275ml ONE (10:29)
[2016-12-14 11:27] VITALS: BP 99/62
--- NOTE | 2016-12-14 11:45 | Progress Note ---
DATE: 12/13/2016 CARDIOLOGY PROGRESS NOTE Subjective: The patient is more alert. No nausea or vomiting. No signs of bleeding. Laboratory data: Ammonia level has decreased to 42. Chemistry panel is within normal limits. Magnesium is 1.1. White count is 3.9, hemoglobin 8.2, and platelet count 26,000. Calcium is 10.3. Albumin is 3.8. IMPRESSION: 1. Hypovolemic and bradycardic syncope. 2. Hypomagnesemia. 3. Hypercalcemia. 4. Moderate protein-calorie malnutrition. 5. End-stage liver disease. 6. Multiple myeloma. 7. Pancytopenia. PLAN: 1. Recheck blood count. 2. May need transfusion. 3. IV magnesium. 4. Consider pamidronate for increasing levels of calcium. 5. We will check ionized level. 6. Continue lactulose, titrate dose. 7. No resumption of beta-elly. 8. Discontinue IV fluids, but hold furosemide at this time. Jeronimo Anthony M.D. DR: Lamar JOB#: [id number] CC:
[2016-12-14 15:23] VITALS: BP 101/63
--- NOTE | 2016-12-14 17:45 | History and Physical Report ---
DATE OF ADMISSION: 12/12/2016 CHIEF COMPLAINT: Syncope. History Of Present Illness: The patient is an unfortunate 61-year-old male. He has a history of cirrhosis, multiple myeloma, chronic kidney disease, anemia. The patient was transferred from a [facility] facility after a syncopal episode. Unfortunately, the patient is a poor historian and he is unable to provide any history. According to the intermediate, the patient had a witnessed syncopal episode where he was unresponsive for several minutes. He was breathing and had an adequate pulse and blood pressure. He was transferred by paramedics to the emergency room for further evaluation. On evaluation there, initial laboratory showed a white count of 6, sodium 137, and ammonia level was 95. CT scan of the head showed no bleed or stroke. The patient is now admitted for further evaluation and care. PAST MEDICAL HISTORY: As above. PAST SURGICAL HISTORY: None. CURRENT MEDICATIONS: Reconciled and reviewed. ALLERGIES: Iodine. SOCIAL HISTORY: The patient is prior drinker. No tobacco or drugs. FAMILY HISTORY: Noncontributory. REVIEW OF SYSTEMS: Unobtainable from the patient, as he is confused. PHYSICAL EXAMINATION: General: The patient is a chronically ill-appearing male, no apparent distress. He is awake, but somewhat confused. Vital Signs: Temperature 98 degrees, pulse of 61, blood pressure 102/64. NECK: Supple. There is no jugular venous distention. HEART: Regular rate and rhythm. LUNGS: Clear. ABDOMEN: Soft, nontender, and nondistended. EXTREMITIES: Without clubbing, cyanosis, or edema. Laboratory And Diagnostic Data: Sodium 137 and potassium 3.2. Bilirubin 1.9. Ammonia of 95. INR is 1.4. White count 6, hemoglobin 9, hematocrit 28, and platelet count of 43,000. Assessment: This is an unfortunate male with history of myeloma, cirrhosis, chronic anemia, chronic kidney disease, hypercalcemia, and hepatic encephalopathy admitted with syncopal episode likely secondary to volume depletion. Plan: Cautious hydration. Monitor laboratories. Lactulose for ammonia level. Discontinue beta elly per Cardiology. Monitor patient's platelet count. The patient's overall prognosis appears poor in light of his multiple medical issues. Sp [place], M.D. DR: MERCED JOB#: [id number] CC:
[2016-12-14 20:26] VITALS: BP 107/66
[2016-12-14] MEDS: Tamsulosin 0.4mg cap ORAL SCH (21:07)
[2016-12-15 00:04] VITALS: BP 96/54
[2016-12-15 03:43] VITALS: BP 101/63
--- NOTE | 2016-12-15 05:45 | Progress Note ---
DATE: 12/14/2016 CARDIOLOGY PROGRESS NOTE Subjective: The patient remains confused, but overall at baseline per daughter. Alert and interactive. Appetite fair. OBJECTIVE: Vital Signs: Blood pressure 98/60 to 123/54, heart rate 59 to 88, respiratory rate 18, and afebrile. HEENT: Temporal wasting. Scleral icterus. NECK: Supple. LUNGS: Clear. CARDIAC: Regular. Normal S1 and S2. ABDOMEN: Soft. No ascites. EXTREMITIES: No edema. There is no asterixis. LABORATORY DATA: Reviewed. IMPRESSION: 1. Syncopal episode, likely due to hypovolemia and possibly bradycardia. 2. End-stage liver disease. 3. History of multiple myeloma. 4. Pancytopenia. 5. History of hypercalcemia, status post pamidronate. 6. Hepatic encephalopathy, improved with lactulose. PLAN: 1. Discontinue IV fluids. 2. Encourage oral intake. 3. No resumption of propranolol. 4. Hold diuretic. 5. Titrate lactulose. 6. Discharge planning. Jeronimo Anthony M.D. DR: MAN JOB#: [id number] CC:
[2016-12-15 07:29] LABS: MEAN CORPUSCULAR HEMOGLOBIN 29.9 PG (27.0-31.0); MEAN CORPUSCULAR HGB CONC 33.4 G/DL (32.0-36.0); MEAN CORPUSCULAR VOLUME 90 FL (80-99); PLATELET COUNT 25 K/UL (150-450); RED BLOOD COUNT 2.72 M/UL (4.70-6.10); RED CELL DISTRIBUTION WIDTH 14.3 % (11.6-14.8); WHITE BLOOD COUNT 2.7 K/UL (4.8-10.8)
[2016-12-15 07:54] LABS: ALANINE AMINOTRANSFERASE 26 U/L (3-41); ALBUMIN/GLOBULIN RATIO 0.8 (1.0-2.7); ANION GAP 9 (5-15); ASPARTATE AMINO TRANSFERASE 37 U/L (5-40); CALCIUM 9.7 mg/dL (8.6-10.2); CARBON DIOXIDE 23 mEQ/L (20-30); CHLORIDE 109 mEQ/L (98-107); GLOMERULAR FILTRATION RATE > 60 mL/min (>60); HEMOLYSIS 0; POTASSIUM 3.8 mEQ/L (3.4-4.9); SODIUM 141 mEQ/L (135-145); TOTAL PROTEIN 5.6 g/dL (6.6-8.7)
[2016-12-15 08:09] LABS: BILIRUBIN,DIRECT 0.3 mg/dL (0.1-0.3)
[2016-12-15] MEDS: Thiamine 100mg tab ORAL SCH (08:23)
[2016-12-15 08:36] VITALS: BP 99/62
[2016-12-15] MEDS: Lactulose 20gm/30ml UDC ORAL SCH ×2 (09:00→14:30)
[2016-12-15] MEDS: Sensipar 30mg Tab ORAL SCH ×2 (09:00→11:33)
[2016-12-15] MEDS: Spironolactone 25mg tab ORAL SCH ×2 (09:00→11:33)
[2016-12-15 09:12] LABS: ACANTHOCYTES 1+; ANISOCYTOSIS 1+; BAND NEUTROPHILS % (MANUAL) 1 % (0-8); BASOPHILS % (MANUAL) 0 % (0-2); EOSINOPHILS % (MANUAL) 2 % (0-3); HYPOCHROMASIA 1+; LYMPHOCYTES % (MANUAL) 16 % (20-45); NEUTROPHILS % (MANUAL) 79 % (45-75); PLATELET ESTIMATE DECREASED; PLATELET MORPHOLOGY NORMAL; SCHISTOCYTES 1+; TEAR DROP CELLS 1+; TOTAL CELLS COUNTED 100
[2016-12-15 12:00] VITALS: BP 94/63
--- NOTE | 2016-12-15 12:11 | Diagnostic Imaging Report ---
APPROVED REPORT CPT Code: 86800 Present Symptoms Lower Extremity Pain: BILATERAL: Imaging reveals a patent deep venous system bilaterally. There is no evidence of thrombus within the femoral, popliteal or tibial segments. The greater saphenous veins are also within normal limits. Doppler indicates normal spontaneous flow within these segments. 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
--- NOTE | 2016-12-15 15:26 | Cardiology Report ---
APPROVED REPORT EKG Measurement Heart [id number] FL [id number] Sinus bradycardia Right bundle branch block Abnormal ECG
--- NOTE | 2016-12-16 02:15 | Progress Note ---
DATE: 12/15/2016 CARDIOLOGY PROGRESS NOTE Subjective: The patient is at baseline mentation. No respiratory distress. Appetite is poor. OBJECTIVE: Vital Signs: Blood pressure 99/62, pulse 66, and respiratory rate 17. Monitored rhythm sinus. Heart rates in the 60s. HEENT: Temporal wasting. Scleral icterus. NECK: Supple. LUNGS: Clear. CARDIAC: Regular. Normal S1 and S2. ABDOMEN: Soft. No ascites. EXTREMITIES: No edema. Laboratory Data: Ammonia 66, potassium 3.8, BUN 8, and creatinine 1.0. Albumin 3.6. White count 3.7, hemoglobin 8.1, and platelet count 25,000. IMPRESSION: 1. Pancytopenia. 2. History of myeloma. 3. History of hypercalcemia. 4. Orthostatic and bradycardic syncope, now resolved with hydration. 5. End-stage liver disease. 6. Hepatic encephalopathy at baseline. PLAN: 1. No resumption of beta-elly or furosemide. 2. Maintain adequate oral hydration. 3. Encourage oral intake. 4. Outpatient hematology/oncology followup. 5. Titrate lactulose. Jeronimo Anthony M.D. DR: MAN JOB#: [id number] CC:
--- NOTE | 2016-12-16 06:15 | Discharge Summary ---
DATE OF ADMISSION: 12/12/2016 DATE OF DISCHARGE: 12/15/2016 ADMISSION DIAGNOSES: 1. Syncope. 2. Bradycardia. 3. Dehydration. 4. Cirrhosis. 5. History of myeloma. DISCHARGE DIAGNOSES: 1. Syncope. 2. Bradycardia. 3. Dehydration. 4. Cirrhosis. 5. History of myeloma. History: The patient is a pleasant male admitted with complaints of syncope. He was noted to be dehydrated, bradycardic, and hypotensive. He was gently hydrated. His diuretic therapy was discontinued as was his beta-elly because of bradycardia. The patient remained stable afterwards. On discharge, he is doing well. He will be [facility] to [facility] facility and he will be followed by his PMD there. Discharge Medications: Please see discharge medication list for discharge medications. DIET: Cardiac diet. ACTIVITY: Ad-beth. Followup: The patient will follow up with his PMD in one to two days. Sp Vicente M.D. DR: [place] JOB#: [id number] CC:
== END 2016-12-15 13:18 | DRG 309 ==
LOC: EDBD 13:08 → EMR 13:41 → 2E 13:43 → EDBEDREQ 14:02 → 2E 12-13 13:19
DX: R00.1 Bradycardia, unspecified (principal); C90.00 Multiple myeloma not having achieved remission; D61.818 Other pancytopenia; I95.9 Hypotension, unspecified; K74.60 Unspecified cirrhosis of liver; K72.90 Hepatic failure, unspecified without coma; E86.0 Dehydration; E86.1 Hypovolemia; E87.6 Hypokalemia
CPT/HCPCS: 36415; 70450; 71010; 74176; 80053; 81003; 82140; 82248; 82550; 82553; 83690; 83735; 83880; 84484; 85007; 85025; 85610; 85730; 87081; 93005; 93970; 99285; J8499